=== PATIENT | female | born 1950 | race Caucasian/White ===

== ENCOUNTER 2019-01-17 14:09 | Observation (INO) ==
[2019-01-17 15:01] LABS: Hematocrit (blood only) 43.5 % (37-47); Hemoglobin 14.2 g/dL (12.0-16.0); Mean Corpuscular Hgb Conc 32.6 g/dL (32-36); Mean Corpuscular Volume 95.4 fL (80-100); Mean Platelet Volume 10.4 fL (7.4-10.4); Platelet Count 286 K/uL (130-400); RDW Coefficient of Variation 14.7 % (11.5-14.5); RDW Standard Deviation 51.1 fL (36.4-46.3); Red Blood Count 4.56 M/uL (4.2-5.4); White Blood Count 15.07 K/uL (4.8-10.8)
[2019-01-17 15:13] LABS: Partial Thromboplastin Ratio 0.9; Partial Thromboplastin Time 23.9 Seconds (21.0-31.0); Prothrombin Time 10.3 Seconds (9.0-12.0)
[2019-01-17 15:16] LABS: Alanine Aminotransferase 22 U/L (12-78); Albumin Level 3.4 gm/dl (3.4-5.0); Aspartate Aminotransferase 13 U/L (15-37); BUN Creatinine Ratio 16.4 (10-20); Blood Urea Nitrogen 15 mg/dl (7-18); Calcium 8.5 mg/dl (8.5-10.1); Carbon Dioxide 30 mmol/L (21-32); Chloride 102 mmol/L (98-107); Creatinine Clr Calc Pharmacy 58.3 ml/min; Est GFR (African American) 74.6; Est GFR (Non-African American) 64.4; Glucose 142 mg/dl (70-99); Magnesium 2.6 mg/dl (1.8-2.4); Potassium 3.6 mmol/L (3.5-5.1); Sodium 140 mmol/L (136-145)
[2019-01-17 15:18] LABS: Albumin Globulin Ratio 0.9 (0.9-2); Alkaline Phosphatase 95 U/L (45-117); Bilirubin,Total 0.4 mg/dl (0.2-1); Globulin 3.6 gm/dl (2.5-4.0)
[2019-01-17] MEDS ORDERED: OPTIRAY 320 125ml IV PRN (15:28)
--- NOTE | 2019-01-17 15:30 | CT Scan Report ---
CT head/brain wo con CLINICAL HISTORY: left facial numbness/left arm numb/weak COMPARISON STUDY: No previous studies for comparison. TECHNIQUE: Axial CT of the brain is performed from the vertex to the skull base. IV contrast was not administered for this examination. A dose lowering technique was utilized adhering to the principles of ALARA. CT DOSE: FINDINGS: No intra or extra-axial mass lesions are visualized. There is no CT evidence of acute cortical infarc tion. There is no evidence of midline shift. There is no acute hemorrhage. No calvarial fractures ar e visualized. There is no evidence of pathologic ventricular dilatation. There is no evidence of acute sinusitis IMPRESSION: No acute intracranial findings Electronically signed by: Roscoe Perez M.D. 01/17/2019 3:29 PM
[2019-01-17 15:41] LABS: Troponin I < 0.015 ng/ml (0-0.045)
--- NOTE | 2019-01-17 15:46 | CT Scan Report ---
CT angio head w con CLINICAL HISTORY: 68 years-old Female with left facial numbness/left arm numb/weak. Acute left-heather ed facial and left arm numbness COMPARISON STUDY: CT head of same day TECHNIQUE: Following the IV administration of 118 cc of Optiray 320, CT angiogram of the brain was pe rformed from the skull base to the vertex. Images are reviewed in the axial, sagittal, and coronal pl anes. 3-D MIPS images are created and assessed. IV contrast was administered without complication. A dose lowering technique was utilized adhering to the principles of ALARA. FINDINGS: CT ANGIOGRAM OF THE BRAIN: The imaged bilateral internal carotid arteries are patent. The bilateral anterior and middle cerebral arteries are also patent. The vertebrobasilar system and posterior cerebral arteries are widely olson nt. There is no aneurysm, high-grade stenosis, or proximal branch occlusion identified. Dural sinuses appear patent. Diminutive right V4 segment terminates into the right PICA, likely developmental. Fet al origin of the left posterior cerebral artery. IMPRESSION: Unremarkable CTA of the head. The above report was generated using voice recognition software. It may contain grammatical, syntax o r spelling errors. Electronically signed by: Simon Drummond M.D. 01/17/2019 3:45 PM
--- NOTE | 2019-01-17 15:50 | CT Scan Report ---
CT angio neck with con CLINICAL HISTORY: 68 years-old Female with left facial numbness/left arm numb/weak. Acute strokeli ke symptoms with left facial and left arm numbness and weakness COMPARISON STUDY: CT head and CTA head of same day TECHNIQUE: Following the IV administration of 1 18 mL of Optiray 320, CT angiogram of the neck was pe rformed from the aortic arch to the skull base. Images are reviewed in the axial, sagittal, and coron al planes. 3-D MIPS images are created and assessed. IV contrast was administered without complicatio n. All measurements were calculated based on NASCET criteria. A dose lowering technique was utilized adhering to the principles of ALARA. FINDINGS: Imaged bilateral subclavian arteries appear widely patent. Bilateral common carotid arterie s appear widely patent. Mild mixed plaque formation about the left carotid bulb results in less than 50% luminal narrowing. Bilateral internal carotid arteries are otherwise unremarkable and widely olosn nt. Mild calcified plaque noted about the bilateral cavernous and supraclinoid segments. Dominant left vertebral artery is widely patent and within normal limits. Developmentally diminutive right vertebral artery terminates into the right PICA. Basilar artery is patent and unremarkable. Fet al origin of the left posterior cerebral artery. The lateral posterior cerebral arteries appear paten t and unremarkable. No pneumothorax. Lung apices appear clear. Nonspecific prominent 7 mm lymph node of the right tracheo esophageal recess. Soft tissues are unremarkable. Degenerative changes of the spine are noted. No acu te fracture identified. IMPRESSION:Unremarkable CTA of the neck without aneurysm, dissection, high-grade stenosis or proximal branch occlusion. The above report was generated using voice recognition software. It may contain grammatical, syntax o r spelling errors. Electronically signed by: Simon Drummond M.D. 01/17/2019 3:49 PM
--- NOTE | 2019-01-17 15:53 | XRay Report ---
XR chest 1V portable CLINICAL HISTORY: cough eval for pna dyspnea COMPARISON STUDY: No previous studies for comparison. FINDINGS: The bones soft tissues and hemidiaphragms are normal. The cardiomediastinal silhouette is n ormal. The lungs are clear. The pulmonary vasculature is normal. IMPRESSION: Negative chest. The above report was generated using voice recognition software. It may contain grammatical, syntax or spelling errors. Electronically signed by: Robert Holley M.D. 01/17/2019 3:52 PM
[2019-01-17] MEDS ORDERED: CLOPIDOGREL BISULFATE 300 MG TAB PO STA (16:23)
[2019-01-17] MEDS ORDERED: LORazepam 1 MG/2 ML VIAL IV ONE (17:07)
--- NOTE | 2019-01-17 17:32 | History & Physical Report ---
Date of Service January 17, 2019 Assessment & Plan (1) Facial numbness: (2) Arm numbness left: -Admit to telemetry -Patient presenting from home with reports of facial numbness and left arm numbness -Stroke alert called in the ED however patient felt to not be a TPA candidate secondary to sensory symptoms only -Head CT, head and neck CTAs all negative for acute findings -Patient received clopidogrel 300 mg per recommendation of stroke neurologist -Check brain MRI and echo -Permissive HTN -History of prior TIA in the past, continue aspirin and statin and add clopidogrel 75 mg starting tomorrow -Neurology consult, input appreciated (3) Leukocytosis: -WBC 15 K -No signs of infection -Likely secondary to recent steroid use (4) HTN (hypertension): -BP mildly elevated, allowing for permissive hypertension in the setting of possible CVA -Continue home doses of bisoprolol/HCTZ, lisinopril with holding parameters in place (5) Hypothyroidism: -Continue levothyroxine (6) Moderate persistent asthma: -No signs of acute exacerbation -Continue home inhalers -Recently self started prednisone taper that was initially prescribed for arthritis flare for a suspected bronchitis, symptoms resolving (7) DVT prophylaxis: -SQ Lovenox History of Present Illness Chief Complaint: Facial and left arm numbness Primary Care Provider: Radha Palmer DO 68-year-old female who presents to the ED with facial and left arm numbness. Patient reports that suddenly around 1:00, she developed numbness over her entire face that radiated into her left arm. She reports some mild left arm weakness and achiness associated with it. No facial droop, slurred speech, lower extremity involvement. She then presented to the ER for further evaluation. About 1 month ago, patient was having low-grade fevers and a persistent leukocytosis. 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 Patient reports her symptoms spontaneously resolved and she did not start the steroids. However she did self start the steroids about 8 days ago for a suspected bronchitis. Patient reports her URI symptoms are resolving as well. She denies recent fevers and chills. No chest pain or shortness of breath. She denies lightheadedness, dizziness, diaphoresis, syncopal events. No abdominal pain, nausea, vomiting or diarrhea. She denies any urinary symptoms. In the ED, a stroke alert was called however patient was not felt to be a TPA candidate since only sensory symptoms are remaining. Head CT, head and neck CTAs are negative for acute findings. Labs are unremarkable. Per stroke neurologist recommendations, patient was given clopidogrel 300 mg. Allergies Allergy/AdvReac Type Severity Reaction Status Date / Time tetracycline Allergy Severe SWELLING Unverified 01/17/19 14:55 adalimumab Allergy Intermediate . Unverified 01/17/19 14:55 Penicillins Allergy Intermediate . Unverified 01/17/19 14:55 promethazine Allergy Intermediate . Unverified 01/17/19 14:55 Home Medications Home Medications Medication Instructions Recorded Confirmed Type allopurinol 300 mg PO DAILY 01/17/19 01/17/19 History aspirin 81 mg PO DAILY 01/17/19 01/17/19 History atorvastatin 40 mg PO DAILY 01/17/19 01/17/19 History bisoprolol-hydrochlorothiazide 1 tab PO DAILY 01/17/19 01/17/19 History fluticasone propion-salmeterol 1 inh INHALATION BID 01/17/19 01/17/19 History [Wixela Inhub] levothyroxine [Synthroid] 125 mcg PO DAILY 01/17/19 01/17/19 History lisinopril 10 mg PO DAILY 01/17/19 01/17/19 History montelukast 10 mg PO DAILY 01/17/19 01/17/19 History prednisone See Rx Instructions .ROUTE .COMPLEX 01/17/19 01/17/19 History Past Med/Surg History Medical History History of hysterectomy (Chronic) TIA (transient ischemic attack) (Chronic) Fibromyalgia (Chronic) Seronegative rheumatoid arthritis (Chronic) Osteoarthritis (Chronic) IBS (irritable bowel syndrome) (Chronic) HTN (hypertension) (Chronic) Moderate persistent asthma (Chronic) HLD (hyperlipidemia) (Chronic) Hypothyroidism (Chronic) Surgical History H/O spinal fusion (Chronic) History of cataract surgery (Chronic) History of bilateral carpal tunnel release (Chronic) Family History Father Heart disease Mother Heart disease Brother Heart disease Social History Feels Safe at Home: Yes Smoking Status: Never smoker Hx Alcohol Use: Yes Alcohol Intake Frequency: Rarely Review of Systems Review of Systems: ROS per HPI, all other systems reviewed and negative Physical Exam Constitutional: WD/WN, vitals as above Eyes: PERRL, conjunctivae normal, anicteric sclerae ENMT: external ear and nose normal, oropharynx normal Respiratory: normal respiratory effort, lungs clear to auscultation Cardiovascular: Rate/Rhythm: regular rate and regular rhythm Vessels: normal peripheral pulses Extremities: no edema Gastrointestinal (Abdomen): normal bowel sounds, soft, nontender, no hepatosplenomegaly Musculoskeletal: no cyanosis or clubbing, extremities motor strength 5/5 Skin: no rashes, warm and dry Neurologic: PERRL, EOMI, accommodation nl, no face palsy, no dysarthria moves all extremities and awake Motor/Sensory: + sensory deficit (Facial numbness); no pronator drift Coordination: normal [id number] test and normal [id number] test Psychiatric: A+Ox3, euthymic affect Results & Data Vital Signs (Past 12 Hours) Vital Signs Temp Pulse Pulse Resp BP BP Pulse Ox 01/17/19 16:30 66 17 154/78 H 94 01/17/19 15:36 81 16 146/75 H 97 01/17/19 14:17 36.9 C 67 18 151/73 H 91 Laboratory Results Short CBC 01/17/19 Range/Units 14:48 WBC 15.07 H (4.8-10.8) K/uL Hgb 14.2 (12.0-16.0) g/dL Hct 43.5 (37-47) % Plt Count 286 (130-400) K/uL BMP 01/17/19 14:48 Sodium 140 Potassium 3.6 Chloride 102 Carbon Dioxide 30 BUN 15 Creatinine 0.91 Glucose 142 H Calcium 8.5 Cardiac Enzymes 01/17/19 Range/Units 14:48 Troponin I < 0.015 (0-0.045) ng/ml Liver Function 01/17/19 Range/Units 14:48 Total Bilirubin 0.4 (0.2-1) mg/dl AST 13 L (15-37) U/L ALT 22 (12-78) U/L Alkaline Phosphatase 95 (45-117) U/L Albumin 3.4 (3.4-5.0) gm/dl Diagnostic Findings HEAD CT IMPRESSION: No acute intracranial findings HEAD CTA IMPRESSION: Unremarkable CTA of the head. NECK CTA IMPRESSION:Unremarkable CTA of the neck without aneurysm, dissection, high-grade stenosis or proximal branch occlusion. CXR IMPRESSION: Negative chest. Code Status & VTE Plan VTE Prophylaxis Plan VTE Prophylaxis will be ordered: Yes Supervising Physician Co-Signing Physician Notes I saw this patient with the Nurse Practitioner, I participated in the history, physical, review of systems, and physical exam. I reviewed the medications with the patient and the Nurse Practitioner and helped reconcile the medications. I helped take a detailed family and social history as well. I formulated the assessment and plan personally with the Nurse Practitioner went over it with the patient. ROS-No Headache, No Visual Changes, No Nausea, No Vomiting, No Fever, No Chills, No Neck Pain or Stiffness, No Chest Pain, No Palpitations, No SOB, No DOBSON, No Cough, No Sputum, No Wheezing, No Abdominal Pain, No Diarrhea, No Hematemesis, No Hemoptysis, No Unexpected Weight Loss, No Flank pain, No Melena, No Hematochezia, No Frequency, No Urgency, No Burning, No Hematuria, No Rashes, No Diaphoresis. Appetite is Normal, +Facial weakness and LUE weakness Physical Exam Gen-AAO x 3, NAD, Afebrile Head-NCAT, EOMI, PERRLA, Anicteric Sclera, No Posterior Pharyngeal Erythema Neck-Supple, No JVD, No Thyromegaly, No Masses, No LAD, No Bruits Lungs-Clear to Auscultation Bilaterally, No Rales, No Rhonchi, No Wheezing, No Crepitus Chest-No S4, +S1, +S2, No S3, No Murmurs, No Rubs, No Gallops, No Ectopy Abdomen-Soft, Bowel Sounds Present, Non Tender, Non Distended, No Hepatomegaly, No Splenomegaly, No Palpable Masses, No Rebound, No Rigidity, No Guarding Musculoskeletal-Full Range of Motion Bilaterally, No CVAT Extremities-No Cyanosis, No Clubbing, No Edema Nuero-Cranial Nerves II-XII grossly intact, Descreased Motor B/L UEs, DTRs WNL, Strength Decreased on Left Psych-Normal Mood
[2019-01-17] MEDS ORDERED: GADOBUTROL 65ML VIAL IV PRN (18:18)
--- NOTE | 2019-01-17 18:32 | Magnetic Resonance Report ---
MR brain wo/w con CLINICAL HISTORY: CVA mental status change COMPARISON STUDY: No previous studies for comparison. TECHNIQUE: Utilizing a 1.5 Megan magnet and dedicated coil, multiplanar, multiecho imaging of the br ain was performed pre and postcontrast administration. IV administration of 7.5 mL of Gadavist contr ast was uneventful. FINDINGS: No evidence for acute ischemic process. Diffusion-weighted images are normal. Findings of mild age-related atrophy and chronic small vessel change. No abnormal postcontrast enhanc ement. IMPRESSION: No acute process. The above report was generated using voice recognition software. It may contain grammatical, syntax or spelling errors. Electronically signed by: Robert Holley M.D. 01/17/2019 6:31 PM
[2019-01-17] MEDS ORDERED: PHARMACIST DISCHARGE MED REC CONSULT PRN (18:53)
[2019-01-17] MEDS ORDERED: ACETAMINOPHEN 325 MG TAB PO PRN (18:53)
[2019-01-17] MEDS ORDERED: ENOXAPARIN INJ 40 MG/0.4 ML SYR SQ SCH (20:00)
[2019-01-17] MEDS: FLUTICASONE/SALMETEROL 250/50 (ADVAIR) 14 PUFF/1 INHALER INH SCH (21:03)
--- NOTE | 2019-01-17 21:37 | Emergency Department Note ---
Entered by Simin Rubio acting as a scribe for History of Present Illness General Chief complaint: Neuro Symptoms/Deficit Stated complaint: FACIAL NUMBNESS & LEFT ARM/HAND Source: patient History of Present Illness Onset (ago): hour(s) 2 Location: face and upper extremity (left arm) Severity: similar to prior episodes Pain Consistency: + other (episode) Maximum Pain Intensity: 1 Quality: + aching (left arm) Associated symptoms: + weakness (left arm) and + other (-speech troubles; - walking troubles; -similar leg symptoms; -visual changes); no chest pain, no headaches and no shortness of breath The patient is a 68 year old female who presents to the Emergency Room with complaints of an episode of numbness to her entire face and left arm that started at approximately 1330 today. The patient also notes her left arm feels weak and she feels "achy" pain in the left arm. The patient states she has had a couple TIAs about 1 year ago. She stated that this consisted of numbness to the right side of her face. The patient notes she takes prednisone, and she initially believed her symptoms were caused by an adverse reaction to prednisone. The patient also reports that she is currently getting over bronchitis. She called her doctor who referred her here. The patient denies speech troubles, walking troubles, numbness or weakness in legs, or visual changes. The patient also denies a headache, chest pain, and shortness of breath. The patient does not note previous history of heart disease or diabetes, however the patient notes of asthma and a spinal fusion in lumbar spine. Home Medications Home Medications Medication Instructions Recorded Confirmed Type allopurinol 300 mg PO DAILY 01/17/19 01/17/19 History aspirin 81 mg PO DAILY 01/17/19 01/17/19 History atorvastatin 40 mg PO DAILY 01/17/19 01/17/19 History bisoprolol-hydrochlorothiazide 1 tab PO DAILY 01/17/19 01/17/19 History fluticasone propion-salmeterol 1 inh INHALATION BID 01/17/19 01/17/19 History [Wixela Inhub] levothyroxine [Synthroid] 125 mcg PO DAILY 01/17/19 01/17/19 History lisinopril 10 mg PO DAILY 01/17/19 01/17/19 History montelukast 10 mg PO DAILY 01/17/19 01/17/19 History prednisone See Rx Instructions .ROUTE .COMPLEX 01/17/19 01/17/19 History Allergies Allergy/AdvReac Type Severity Reaction Status Date / Time tetracycline Allergy Severe SWELLING Unverified 01/17/19 14:55 adalimumab Allergy Intermediate . Unverified 01/17/19 14:55 Penicillins Allergy Intermediate . Unverified 01/17/19 14:55 promethazine Allergy Intermediate . Unverified 01/17/19 14:55 Past Med/Surg History Medical History History of hysterectomy (Chronic) TIA (transient ischemic attack) (Chronic) Fibromyalgia (Chronic) Seronegative rheumatoid arthritis (Chronic) Osteoarthritis (Chronic) IBS (irritable bowel syndrome) (Chronic) HTN (hypertension) (Chronic) Moderate persistent asthma (Chronic) HLD (hyperlipidemia) (Chronic) Hypothyroidism (Chronic) Surgical History H/O spinal fusion (Chronic) History of cataract surgery (Chronic) History of bilateral carpal tunnel release (Chronic) Family History Father Heart disease Mother Heart disease Brother Heart disease Social History Preferred Language: Kyrgyz Supervisor Composing Room Required: No Beliefs That Will Affect Care: None Current Living Situation: Spouse Other Information That Helps Us Care for You: No Feels Safe at Home: Yes Safety Concerns: Feels Safe At This Time Smoking Status: Never smoker Hx Alcohol Use: Yes Alcohol Intake Frequency: Rarely Hx Substance Use: No Review of Systems See HPI for pertinent positives & negatives. and A total of 10 systems reviewed and were otherwise negative Physical Exam Vital Signs Vital Signs - 24 hr 01/17/19 14:17 01/17/19 14:39 01/17/19 14:54 Temperature 36.9 C Temperature Source Oral Sepsis Recent Fever Within 48 Hours Yes Sepsis New/Unexplained Change in Mental Status No Sepsis Action Taken by Nursing No Action Required Pulse Rate 67 74 Pulse Rate [Left] Pulse Rate from SpO2 Sensor Respiratory Rate 18 24 Respiratory Effort / Characteristics Respiratory Depth Blood Pressure 151/73 H Blood Pressure [Left Arm] Blood Pressure Mean 99 Blood Pressure Mean [Left Arm] Blood Pressure Position [Left Arm] Pulse Oximetry 91 Oxygen Delivery Method Room Air Room Air 01/17/19 15:00 01/17/19 15:36 01/17/19 15:38 Temperature Temperature Source Sepsis Recent Fever Within 48 Hours Sepsis New/Unexplained Change in Mental Status Sepsis Action Taken by Nursing Pulse Rate 69 83 Pulse Rate [Left] 81 Pulse Rate from SpO2 Sensor Respiratory Rate 15 16 24 Respiratory Effort / Characteristics Non-Labored Spontaneous Respiratory Depth Normal Blood Pressure Blood Pressure [Left Arm] 146/75 H Blood Pressure Mean Blood Pressure Mean [Left Arm] 98 Blood Pressure Position [Left Arm] Lying Pulse Oximetry 97 Oxygen Delivery Method Room Air 01/17/19 15:41 01/17/19 16:00 01/17/19 16:15 Temperature Temperature Source Sepsis Recent Fever Within 48 Hours Sepsis New/Unexplained Change in Mental Status Sepsis Action Taken by Nursing Pulse Rate 78 73 70 Pulse Rate [Left] Pulse Rate from SpO2 Sensor 78 73 70 Respiratory Rate 13 20 16 Respiratory Effort / Characteristics Respiratory Depth Blood Pressure 148/68 H 166/92 H 166/92 H Blood Pressure [Left Arm] Blood Pressure Mean 94 116 116 Blood Pressure Mean [Left Arm] Blood Pressure Position [Left Arm] Pulse Oximetry 94 95 94 Oxygen Delivery Method 01/17/19 16:30 01/17/19 16:31 01/17/19 17:00 Temperature Temperature Source Sepsis Recent Fever Within 48 Hours Sepsis New/Unexplained Change in Mental Status Sepsis Action Taken by Nursing Pulse Rate 67 69 67 Pulse Rate [Left] 66 Pulse Rate from SpO2 Sensor 67 68 67 Respiratory Rate 13 18 20 Respiratory Effort / Characteristics Non-Labored Spontaneous Respiratory Depth Normal Blood Pressure 154/78 H Blood Pressure [Left Arm] 154/78 H Blood Pressure Mean 103 Blood Pressure Mean [Left Arm] 103 Blood Pressure Position [Left Arm] Lying Pulse Oximetry 95 93 94 Oxygen Delivery Method Room Air Constitutional: Vital signs reviewed. Eyes: Pupils are equal round reactive to light. Conjunctiva are noninjected. ENT: Pharynx is clear without erythema or exudate. Mucous membranes are moist. Neck supple without meningeal signs. Respiratory: Clear to auscultation bilaterally. Breath sounds are equal bilaterally. Cardiovascular: Regular rate and rhythm. No rubs or gallops. GI: Soft, nondistended and nontender. Bowel sounds are present. Musculoskeletal: No peripheral edema. No lower extremity tenderness. Integumentary: No cyanosis. Neurological: The patient is awake and alert. Cranial nerves II-XII are intact except dysesthesia to left face. Motor is 5 out of 5 all extremities. Sensation is intact to light touch all extremities. Normal speech. No pronator drift. No limb ataxia. Psychiatric: Normal affect. Course 1511: Past medical records reviewed. The patient was evaluated in room A11B. A complete history and physical exam was performed. 1537: I discussed the case with Dr. Olguin-Neurologist Chanel. Dr. Olguin has advised to not give IV TPA due to the patient's purely sensory findings. She recommended loading with Plavix 3200 mg and then 75 mg daily. 1622: I discussed test results with the patient. She is agreeable to hospitalization. 1627: I discussed the case with Ani Perdomo. Dr. Narayan-Hospitalist Aj moscoso will further evaluate the patient. Consultations Consultation #1: I discussed the case with Dr. Olguin-Neurologheber Buchanan. Dr. Olguin has advised to not give IV TPA due to the patient's purely sensory findings. She recommended loading with Plavix 3200 mg and then 75 mg daily. Time: 15:37 Consultation #2: I discussed the case with Ani Perdomo. Dr. Narayan- Hospitalheber [facility] will further reevaluate the patient. Time: 16:27 Administered Medications Enoxaparin Sodium (Lovenox) 40 mg SQ Q24H SUSHILA Stop: 02/16/19 19:59 Last Admin: 01/17/19 21:02 Dose: 40 mg Documented by: [id number] Gadobutrol (Gadavist 65ml) 8 ml IV ONCE PRN PRN Reason: Interaction Checking Stop: 01/21/19 18:17 Last Admin: 01/17/19 18:19 Dose: 8 ml Documented by: [id number] Fluticasone/Salmeterol (Advair Diskus 250/50) 1 puffs INH BID SUSHILA Stop: 02/16/19 20:59 Last Admin: 01/17/19 21:03 Dose: 1 puffs Documented by: [id number] Discontinued Medications Clopidogrel Bisulfate (Plavix) 300 mg PO NOW STA Stop: 01/17/19 16:24 Last Admin: 01/17/19 16:51 Dose: 300 mg Documented by: [id number] Lorazepam (Ativan) 1 mg in 2 mls @ 0.5 mls/min IV ONE ONE Stop: 01/17/19 17:10 Last Admin: 01/17/19 17:44 Dose: 0.5 mls/min Documented by: [id number] Ioversol (Optiray 320 125ml) 118 ml IV ONCE PRN PRN Reason: Interaction Checking Stop: 01/21/19 15:27 Last Admin: 01/17/19 15:28 Dose: 118 ml Documented by: [id number] Medical Decision Making Differential Diagnosis Differential diagnoses include TIA, CVA, ICH, intracranial mass, metabolic derangement, amongst others. Medical Records Attestation: I reviewed the patient's medical records. I did perform a limited focused review of portions of the patient's old chart on the electronic medical record. The patient has had no recent pertinent visits to this hospital. Home Medications Current Medication List: was personally reviewed by me Laboratory Data Attestation: I reviewed the patient's lab results. Result diagrams: 01/17/19 14:48 01/17/19 14:48 Lab Results 01/17/19 01/17/19 01/17/19 Range/Units 14:48 14:48 14:48 WBC 15.07 H (4.8-10.8) K/uL RBC 4.56 (4.2-5.4) M/uL Hgb 14.2 (12.0-16.0) g/dL Hct 43.5 (37-47) % MCV 95.4 (80-100) fL MCH 31.1 (25-34) pg MCHC 32.6 (32-36) g/dL RDW Std Deviation 51.1 H (36.4-46.3) fL RDW Coeff of Gray 14.7 H (11.5-14.5) % Plt Count 286 (130-400) K/uL MPV 10.4 (7.4-10.4) fL PT 10.3 (9.0-12.0) Seconds INR 1.0 (0.9-1.1) APTT 23.9 (21.0-31.0) Seconds PTT Ratio 0.9 Sodium 140 (136-145) mmol/L Potassium 3.6 (3.5-5.1) mmol/L Chloride 102 (98-107) mmol/L Carbon Dioxide 30 (21-32) mmol/L Anion Gap 8.0 (3-11) BUN 15 (7-18) mg/dl Creatinine 0.91 (0.6-1.2) mg/dl Est Cr Clr Drug Dosing 58.3 ml/min Est GFR ( Amer) 74.6 Est GFR (Non-Af Amer) 64.4 BUN/Creatinine Ratio 16.4 (10-20) Glucose 142 H (70-99) mg/dl Calcium 8.5 (8.5-10.1) mg/dl Magnesium 2.6 H (1.8-2.4) mg/dl Total Bilirubin 0.4 (0.2-1) mg/dl AST 13 L (15-37) U/L ALT 22 (12-78) U/L Alkaline Phosphatase 95 (45-117) U/L Troponin I < 0.015 (0-0.045) ng/ml Total Protein 7.0 (6.4-8.2) gm/dl Albumin 3.4 (3.4-5.0) gm/dl Globulin 3.6 (2.5-4.0) gm/dl Albumin/Globulin Ratio 0.9 (0.9-2) Blood Type Antibody Screen 01/17/19 Range/Units 15:38 WBC (4.8-10.8) K/uL RBC (4.2-5.4) M/uL Hgb (12.0-16.0) g/dL Hct (37-47) % MCV (80-100) fL MCH (25-34) pg MCHC (32-36) g/dL RDW Std Deviation (36.4-46.3) fL RDW Coeff of Gray (11.5-14.5) % Plt Count (130-400) K/uL MPV (7.4-10.4) fL PT (9.0-12.0) Seconds INR (0.9-1.1) APTT (21.0-31.0) Seconds PTT Ratio Sodium (136-145) mmol/L Potassium (3.5-5.1) mmol/L Chloride (98-107) mmol/L Carbon Dioxide (21-32) mmol/L Anion Gap (3-11) BUN (7-18) mg/dl Creatinine (0.6-1.2) mg/dl Est Cr Clr Drug Dosing ml/min Est GFR ( Amer) Est GFR (Non-Af Amer) BUN/Creatinine Ratio (10-20) Glucose (70-99) mg/dl Calcium (8.5-10.1) mg/dl Magnesium (1.8-2.4) mg/dl Total Bilirubin (0.2-1) mg/dl AST (15-37) U/L ALT (12-78) U/L Alkaline Phosphatase (45-117) U/L Troponin I (0-0.045) ng/ml Total Protein (6.4-8.2) gm/dl Albumin (3.4-5.0) gm/dl Globulin (2.5-4.0) gm/dl Albumin/Globulin Ratio (0.9-2) Blood Type O Positive Antibody Screen NEGATIVE Imaging Data Radiologist's Impression: Radiology results as stated below per my review and the radiologist's interpretation: CT angio head w con CLINICAL HISTORY: 68 years-old Female with left facial numbness/left arm numb/weak. Acute left-sided facial and left arm numbness COMPARISON STUDY: CT head of same day TECHNIQUE: Following the IV administration of 118 cc of Optiray 320, CT angiogram of the brain was performed from the skull base to the vertex. Images are reviewed in the axial, sagittal, and coronal planes. 3-D MIPS images are created and assessed. IV contrast was administered without complication. A dose lowering technique was utilized adhering to the principles of ALARA. FINDINGS: CT ANGIOGRAM OF THE BRAIN: The imaged bilateral internal carotid arteries are patent. The bilateral anterior and middle cerebral arteries are also patent. The vertebrobasilar system and posterior cerebral arteries are widely patent. There is no aneurysm, high-grade stenosis, or proximal branch occlusion identified. Dural sinuses appear patent. Diminutive right V4 segment terminates into the right PICA, likely developmental. origin of the left posterior cerebral artery. IMPRESSION: Unremarkable CTA of the head. The above report was generated using voice recognition software. It may contain grammatical, syntax or spelling errors. Electronically signed by: Simon Drummond M.D. 01/17/2019 3:[address] angio neck with con CLINICAL HISTORY: 68 years-old Female with left facial numbness/left arm numb/weak. Acute strokelike symptoms with left facial and left arm numbness and weakness COMPARISON STUDY: CT head and CTA head of same day TECHNIQUE: Following the IV administration of 1 18 mL of Optiray 320, CT angiogram of the neck was performed from the aortic arch to the skull base. Images are reviewed in the axial, sagittal, and coronal planes. 3-D MIPS images are created and assessed. IV contrast was administered without complication. All measurements were calculated based on NASCET criteria. A dose lowering technique was utilized adhering to the principles of ALARA. FINDINGS: Imaged bilateral subclavian arteries appear widely patent. Bilateral common carotid arteries appear widely patent. Mild mixed plaque formation about the left carotid bulb results in less than 50% luminal narrowing. Bilateral internal carotid arteries are otherwise unremarkable and widely patent. Mild calcified plaque noted about the bilateral cavernous and supraclinoid segments. Dominant left vertebral artery is widely patent and within normal limits. Developmentally diminutive right vertebral artery terminates into the right PICA. Basilar artery is patent and unremarkable. origin of the left posterior cerebral artery. The lateral posterior cerebral arteries appear patent and unremarkable. No pneumothorax. Lung apices appear clear. Nonspecific prominent 7 mm lymph node of the right tracheoesophageal recess. Soft tissues are unremarkable. Degenerative changes of the spine are noted. No acute fracture identified. IMPRESSION:Unremarkable CTA of the neck without aneurysm, dissection, high-grade stenosis or proximal branch occlusion. The above report was generated using voice recognition software. It may contain grammatical, syntax or spelling errors. Electronically signed by: Simon Drummond M.D. 01/17/2019 3:[address] head/brain wo con CLINICAL HISTORY: left facial numbness/left arm numb/weak COMPARISON STUDY: No previous studies for comparison. TECHNIQUE: Axial CT of the brain is performed from the vertex to the skull base. IV contrast was not administered for this examination. A dose lowering technique was utilized adhering to the principles of ALARA. CT DOSE: FINDINGS: No intra or extra-axial mass lesions are visualized. There is no CT evidence of acute cortical infarction. There is no evidence of midline shift. There is no acute hemorrhage. No calvarial fractures are visualized. There is no evidence of pathologic ventricular dilatation. There is no evidence of acute sinusitis IMPRESSION: No acute intracranial findings Electronically signed by: Roscoe Perez M.D. 01/17/2019 3:29 PM XR chest 1V portable CLINICAL HISTORY: cough eval for pna dyspnea COMPARISON STUDY: No previous studies for comparison. FINDINGS: The bones soft tissues and hemidiaphragms are normal. The cardiomediastinal silhouette is normal. The lungs are clear. The pulmonary vasculature is normal. IMPRESSION: Negative chest. The above report was generated using voice recognition software. It may contain grammatical, syntax or spelling errors. Electronically signed by: Robert Holley M.D. 01/17/2019 3:52 PM ECG Data Attestation: I personally reviewed and interpreted this ECG as follows: Indication: other (stroke) Rate (beats per minute): 70 Rhythm: normal sinus Findings: no PVC and no ST elevation Blood Pressure Blood Pressure Findings: Elevated blood pressure Blood Pressure Disposition: further management by hospitalist DOMENICA Hanson I did evaluate the patient as noted above. The patient is presenting with numb ness to her entire face as well as numbness and weakness to her left arm starting 2 hours prior to my evaluation. On my examination she has some dysesthesia to the left face but no other deficits. I did call a stroke alert. IV access was established. The patient was placed on a continuous director of corporate sponsorships.I did order a stat CT of the head and CT angiogram of the head neck. I did review the images myself as well as the radiology report as described above. There is no evidence of acute CVA. I did discuss the case with the [facility] stroke neurologist. She did not feel the patient was a candidate for IV TPA given her minor sensory deficits. She recommended further work-up as an inpatient including MRI. She also recommended loading the patient with Plavix. I did order and personally review the patient's 12-lead EKG as described above. There is no evidence of acute ischemia. I did order and personally reviewed the images of the patient's chest x-ray as described above. There is no evidence of pneumonia. I did order and review the patient's blood work as noted in the electronic medical record. Her white blood cell count is elevated but she just finished a course of steroids. I did discuss the test results with the patient. She was agreeable to hospitalization for further evaluation. I did treat her with Plavix 300 mg orally. I did discuss the case with the hospitalist and case checker. Impression & Plan Left facial numbness, Left arm weakness, Arm numbness left, Bronchitis Discharge Plan Visit Data *Final* Discharge Date/Time: 01/17/19 18:14 Chief Complaint: Neuro Symptoms/Deficit Stated Complaint: FACIAL NUMBNESS & LEFT ARM/HAND ED Provider: Kyaw Negrete Discharge Problem: Left facial numbness, Left arm weakness, Arm numbness left, Bronchitis Patient Disposition: Admitted As Inpatient Discharge Instructions Interventions: ED Discharge Assessment Last Done: 01/17/19 18:14 The scribe's documentation has been prepared under my direction and personally reviewed by me in its entirety. I confirm that the note above accurately reflects all work, treatment, procedures, and medical decision making performed by me.
[2019-01-17] MEDS ORDERED: ZOLPIDEM TARTRATE 5 MG TAB PO PRN (21:46)
[2019-01-18 05:51] LABS: Estimated Average Glucose 128 mg/dl; Hemoglobin A1C 6.1 % (4.5-5.6)
[2019-01-18 06:21] LABS: Hematocrit (blood only) 41.1 % (37-47); Hemoglobin 13.2 g/dL (12.0-16.0); Mean Corpuscular Hgb Conc 32.1 g/dL (32-36); Mean Corpuscular Volume 93.4 fL (80-100); Mean Platelet Volume 10.7 fL (7.4-10.4); Platelet Count 248 K/uL (130-400); RDW Coefficient of Variation 14.6 % (11.5-14.5); RDW Standard Deviation 49.7 fL (36.4-46.3); White Blood Count 14.69 K/uL (4.8-10.8)
[2019-01-18] MEDS ORDERED: LEVOTHYROXINE SODIUM 125 MCG TABLET PO SCH (06:30)
[2019-01-18 06:54] LABS: BUN Creatinine Ratio 15.3 (10-20); Calcium 8.4 mg/dl (8.5-10.1); Creatinine Clr Calc Pharmacy 62.8 ml/min; Est GFR (African American) 82.2; Est GFR (Non-African American) 70.9; Potassium 3.9 mmol/L (3.5-5.1)
[2019-01-18 07:20] LABS: Basophils # (auto) 0.07 K/uL (0-0.2); Basophils % (auto) 0.5 %; Eosinophils # (auto) 0.36 K/uL (0-0.5); Eosinophils % (auto) 2.5 %; Immature Granulocytes # (auto) 0.03 K/uL (0.00-0.02); Immature Granulocytes % (auto) 0.2 %; Lymphocytes % (auto) 36.1 %; Monocytes # (auto) 0.85 K/uL (0.11-0.59); Monocytes % (auto) 5.8 %; Neutrophils # (auto) 8.08 K/uL (1.4-6.5); Neutrophils % (auto) 54.9 %
[2019-01-18] MEDS: FLUTICASONE/SALMETEROL 250/50 (ADVAIR) 14 PUFF/1 INHALER INH SCH (07:41)
[2019-01-18] MEDS ORDERED: ALLOPURINOL 300 MG TAB PO SCH (09:00)
[2019-01-18] MEDS ORDERED: ASPIRIN 81 MG ECTAB PO SCH (09:00)
[2019-01-18] MEDS ORDERED: MONTELUKAST SODIUM 10 MG TABLET PO SCH (09:00)
[2019-01-18] MEDS ORDERED: predniSONE 5 MG TAB PO SCH (09:00)
[2019-01-18] MEDS ORDERED: LISINOPRIL 10 MG TAB PO SCH (09:00)
[2019-01-18] MEDS ORDERED: CLOPIDOGREL BISULFATE 75 MG TAB PO SCH (09:00)
[2019-01-18] MEDS ORDERED: ATORVASTATIN 40 MG TAB PO SCH (09:00)
[2019-01-18] MEDS ORDERED: LORazepam 0.5 MG TAB PO PRN (13:38)
[2019-01-18] MEDS ORDERED: LORazepam 0.5 MG TAB PO STA (13:38)
[2019-01-18] MEDS ORDERED: BISOPROLOL PO SCH (14:00)
[2019-01-18] MEDS ORDERED: HCTZ PO SCH (14:00)
--- NOTE | 2019-01-18 15:42 | Neurology Consultation ---
Date of Consultation January 18, 2019 Assessment & Plan (1) Left facial numbness: 1. MRI brain with no acute findings 2. CTA head and neck- no significant stenosis 3. optimize HTN, HLD, DM LDL <70 4. continue aspirin 81 mg daily add plavix 75 mg x 21 days then plavix only for life 5. PT/OT speech for discharge needs- does not appear to be needed. 6. may need to see psychology/psychiatry for anxiety disorder 7. TTE no ASD 8. EEG- ?? for possible event follow up with neurology 4-6 weeks Julissa Ackerman PAC schedule (2) Arm numbness left: same as above Supervising Physician Co-Signing Physician Notes I have seen and discussed above patient with Dr uJlissa Braun, neurology History of Present Illness Reason for Consultation: TIA vs CVA Requesting Physician: Charly Lozano MD Attending Physician: Charly Lozano MD History of Present Illness Aj is a 68 year old female who presents to the ED with facial and left arm numbness. About 1:00pm yesterday , she developed numbness over her entire face that radiated into her left arm. She reports some mild left arm weakness and achiness associated with it. About 1 month ago, patient was having low-grade fevers and a persistent leukocytosis. She was seen by [facility] (Dr Draper) and prescribed a prednisone taper for a suspected flare of arthritis. She did not start the steroids but then started the steroids about 8 days ago for a suspected bronchitis which her last dose of 5 mg would have been today. She was seen in our office about 1 year ago for similar symptoms and had a thorough work up for stroke but all test were negative. She was started on aspirin 81 mg at that time. She was given Plavix in the ED. She states the symptoms started to resolve this am but she still has some numbness on the left side of her face. she has been under alot of stress lately and she is receiving some ativan here in the hospital which is helping. denies CP, SOB, abdominal pain, one sided weakness, numbness, tingling, N, V, swallowing issues, falls, headaches. Allergies Allergy/AdvReac Type Severity Reaction Status Date / Time tetracycline Allergy Severe SWELLING Unverified 01/17/19 14:55 adalimumab Allergy Intermediate . Unverified 01/17/19 14:55 Penicillins Allergy Intermediate . Unverified 01/17/19 14:55 promethazine Allergy Intermediate . Unverified 01/17/19 14:55 Home Medications Home Medications Medication Instructions Recorded Confirmed Type allopurinol 300 mg PO DAILY 01/17/19 01/17/19 History aspirin 81 mg PO DAILY 01/17/19 01/17/19 History atorvastatin 40 mg PO DAILY 01/17/19 01/17/19 History bisoprolol-hydrochlorothiazide 1 tab PO DAILY 01/17/19 01/17/19 History fluticasone propion-salmeterol 1 inh INHALATION BID 01/17/19 01/17/19 History [Wixela Inhub] levothyroxine [Synthroid] 125 mcg PO DAILY 01/17/19 01/17/19 History lisinopril 10 mg PO DAILY 01/17/19 01/17/19 History montelukast 10 mg PO DAILY 01/17/19 01/17/19 History prednisone See Rx Instructions .ROUTE .COMPLEX 01/17/19 01/17/19 History Patient History Medical History History of hysterectomy (Chronic) TIA (transient ischemic attack) (Chronic) Fibromyalgia (Chronic) Seronegative rheumatoid arthritis (Chronic) Osteoarthritis (Chronic) IBS (irritable bowel syndrome) (Chronic) HTN (hypertension) (Chronic) Moderate persistent asthma (Chronic) HLD (hyperlipidemia) (Chronic) Hypothyroidism (Chronic) Surgical History H/O spinal fusion (Chronic) History of cataract surgery (Chronic) History of bilateral carpal tunnel release (Chronic) Family History Father Heart disease Mother Heart disease Brother Heart disease Social History Preferred Language: Frisian Communication Ability: Effective 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 Beliefs That Will Affect Care: None Current Living Situation: Spouse Other Information That Helps Us Care for You: No Feels Safe at Home: Yes Safety Concerns: Feels Safe At This Time Smoking Status: Never smoker Hx Alcohol Use: Yes Alcohol Intake Frequency: Rarely Hx Substance Use: No Physical Exam Physical Exam: Physical Exam: Constitutional: appearance over nourished, healthy Ears, Nose, Mouth and Throat: mucous membranes moist, no injection and skin normal, eyes normal Cardiovascular: normal S-1 and S-2 and regular rate and rhythm Respiratory: clear to auscultation (CTA) and no rales, rhonchi or wheeze Musculoskeletal: no peripheral edema and good distal pulses Skin: no stigmata of neurocutaneous disease noted and normal and intact Eyes: extraocular muscles intact (EOMI) and pupils equal, round and reactive to light (PERRL) NEUROLOGIC EXAMINATION: Mental status: Alert and interactive Oriented to full date and location Oriented to person Speech fluent with no evidence of aphasia Cranial Nerves smile eye brow raise symmetric tongue midline Reflexes: Deep tendon reflexes were symmetrical and graded 2/5. toes are upgoing Sensory: decreased sensation left check and forhead, all other sensation intact to light and cool touch Coordination: finger to nose no bipass rapid movements intact Gait/Stance: Posture normal. moves with no limitations in bed and repositions self Motor: Negative for pronator drift of out stretched arms with eyes closed. 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 hip flex patellar plantar flex ext 5/5 Results & Data Vital Signs (Past 12 Hours) Vital Signs Temp Pulse Pulse Resp BP BP Pulse Ox 01/18/19 13:10 74 20 125/71 94 01/18/19 10:47 36.7 C 74 18 130/72 94 01/18/19 07:38 36.6 C 67 17 153/75 H 94 01/18/19 06:19 65 01/18/19 03:42 36.6 C 68 17 109/64 94 Laboratory Results Abnormal lab results 01/17/19 01/18/19 01/18/19 Range/Units 14:48 05:52 05:52 WBC 14.69 H (4.8-10.8) K/uL RDW Std Deviation 49.7 H (36.4-46.3) fL RDW Coeff of Gray 14.6 H (11.5-14.5) % MPV 10.7 H (7.4-10.4) fL Immature Gran # (Auto) 0.03 H (0.00-0.02) K/uL Neut # (Auto) 8.08 H (1.4-6.5) K/uL Lymph # (Auto) 5.30 H (1.2-3.4) K/uL [place] # (Auto) 0.85 H (0.11-0.59) K/uL Carbon Dioxide 33 H (21-32) mmol/L POC Glucose (70-99) Hemoglobin A1c 6.1 H (4.5-5.6) % Calcium 8.4 L (8.5-10.1) mg/dl 01/18/19 Range/Units 13:04 WBC (4.8-10.8) K/uL RDW Std Deviation (36.4-46.3) fL RDW Coeff of Gray (11.5-14.5) % MPV (7.4-10.4) fL Immature Gran # (Auto) (0.00-0.02) K/uL Neut # (Auto) (1.4-6.5) K/uL Lymph # (Auto) (1.2-3.4) K/uL [place] # (Auto) (0.11-0.59) K/uL Carbon Dioxide (21-32) mmol/L POC Glucose 134 H (70-99) Hemoglobin A1c (4.5-5.6) % Calcium (8.5-10.1) mg/dl Diagnostic Findings CTA head- Unremarkable CTA of the head. CTA neck-Unremarkable CTA of the neck without aneurysm, dissection, high-grade stenosis or proximal branch occlusion. MRI brain - No evidence for acute ischemic process. Diffusion-weighted images are normal. findings of mild age-related atrophy and chronic small vessel change. No abnormal postcontrast enhancement. EF 60-65% no ASD
[2019-01-18] MEDS ORDERED: STROKE PATIENT DISCHARGE STA (17:53)
--- NOTE | 2019-01-18 17:55 | Hospitalist Progress Note ---
Date of Service January 18, 2019 Assessment & Plan (1) Facial numbness: (2) Arm numbness left: -Patient presenting from home with reports of facial numbness and left arm numbness -Stroke alert called in the ED however patient felt to not be a TPA candidate secondary to sensory symptoms only -Head CT, head and neck CTAs all negative for acute findings -Patient received clopidogrel 300 mg per recommendation of stroke neurologist Brain MRI: Negative for acute ischemia Echo: Borderline concentric LVH, left ventricle wall motion is normal, left ventricular systolic function is normal, ejection fraction 60 to 65% There is no significant valvular disease , the intra-atrial septum is intact with no evidence for atrial septal defect Injection of contrast documented no intra-atrial shunt Symptoms resolved on the day of discharge Neurologist Dr. Vo consulted Recommend aspirin 81 mg x3 weeks then discontinue, and Plavix 75 mg p.o. daily indefinitely Follow-up with Dr. Vo in 4 to 6 weeks at the neurology clinic Continue risk factor control (3) Leukocytosis: -WBC 15 K -No signs of infection -Likely secondary to recent steroid use (4) HTN (hypertension): BP stable -Continue home doses of bisoprolol/HCTZ, lisinopril (5) Hypothyroidism: -Continue levothyroxine (6) Moderate persistent asthma: -No signs of acute exacerbation -Continue home inhalers -Recently self started prednisone taper that was initially prescribed for arthritis flare for a suspected bronchitis, symptoms resolved (7) Anxiety: Exhibited symptoms of heightened anxiety during admission Patient admits to having multiple stressors at home including recent in e family, and also illness in the family Anxiety may also be exacerbated by prednisone use recently Improved with Ativan as needed while admitted Patient prescribed Vistaril 50 mg every 6 hours as needed for anxiety Advised to seek medical help if worsening Monitor closely as an outpatient Disposition Discharge to home Follow-up with primary care physician on January [address] Tello Jo Follow-up with neurologist Dr. Vo in 4 to 6 weeks, she needs an appointment Subjective Follow-up for facial numbness, left arm numbness Seen resting in bed, comfortable, nondistressed States facial numbness is significantly improved, left arm numbness has resolved Denies other focal neurologic symptoms No chest pain, palpitations, dyspnea, dizziness No other symptoms Review of Systems Review of Systems: All systems reviewed & are unremarkable except as noted in HPI & below Physical Exam Physical Exam: General- oriented x 3, not in distress, speaks in sentences with no effort or accessory muscle use Head- atraumatic Eyes- PERRL, EOMI, anicteric ENT- oropharynx clear Neck- supple, no JVD, no adenopathy, no thyromegaly; carotids +2/2, no bruits appreciated Lungs- clear to auscultation bilaterally, no rales/wheezes Heart- normal rate, regular rhythm; no murmur, no gallop, no rub appreciated Abdomen- normal bowel sounds, nondistended, soft, nontender, no masses or hepatosplenomegaly Extremities- no pretibial edema, no calf tenderness; peripheral pulses intact Neuro- alert, oriented x 3; CN 2-12 grossly intact; motor 5/5 bilaterally; facial sensation around 90%, sensation 100% on all extremities; no other gross focal neurologic deficits Skin- warm & dry Results & Data Vital Signs (Past 12 Hours) Vital Signs Temp Pulse Pulse Resp BP BP Pulse Ox 01/18/19 16:55 73 01/18/19 15:25 36.7 C 68 21 120/72 93 01/18/19 13:10 74 20 125/71 94 01/18/19 10:47 36.7 C 74 18 130/72 94 01/18/19 07:38 36.6 C 67 17 153/75 H 94 01/18/19 06:19 65 Laboratory Results Laboratory Results - last 24 hr 01/17/19 01/18/19 01/18/19 14:48 05:52 05:52 WBC 14.69 H RBC 4.40 Hgb 13.2 Hct 41.1 MCV 93.4 MCH 30.0 MCHC 32.1 RDW Std Deviation 49.7 H RDW Coeff of Gray 14.6 H Plt Count 248 MPV 10.7 H Immature Gran % (Auto) 0.2 Neut % (Auto) 54.9 Lymph % (Auto) 36.1 [place] % (Auto) 5.8 Eos % (Auto) 2.5 Baso % (Auto) 0.5 Immature Gran # (Auto) 0.03 H Neut # (Auto) 8.08 H Lymph # (Auto) 5.30 H [place] # (Auto) 0.85 H Eos # (Auto) 0.36 Baso # (Auto) 0.07 Blood Smear Review Sodium 142 Potassium 3.9 Chloride 105 Carbon Dioxide 33 H Anion Gap 4.0 BUN 13 Creatinine 0.84 Est Cr Clr Drug Dosing 62.8 Est GFR ( Amer) 82.2 Est GFR (Non-Af Amer) 70.9 BUN/Creatinine Ratio 15.3 Glucose 95 POC Glucose Estimat Average Glucose 128 Hemoglobin A1c 6.1 H Calcium 8.4 L Triglycerides 70 Cholesterol 107 LDL Cholesterol, Calc 37 VLDL Cholesterol, Calc 14 HDL Cholesterol 56 Cholesterol/HDL Ratio 2 01/18/19 13:04 WBC RBC Hgb Hct MCV MCH MCHC RDW Std Deviation RDW Coeff of Gray Plt Count MPV Immature Gran % (Auto) Neut % (Auto) Lymph % (Auto) [place] % (Auto) Eos % (Auto) Baso % (Auto) Immature Gran # (Auto) Neut # (Auto) Lymph # (Auto) [place] # (Auto) Eos # (Auto) Baso # (Auto) Blood Smear Review Sodium Potassium Chloride Carbon Dioxide Anion Gap BUN Creatinine Est Cr Clr Drug Dosing Est GFR ( Amer) Est GFR (Non-Af Amer) BUN/Creatinine Ratio Glucose POC Glucose 134 H Estimat Average Glucose Hemoglobin A1c Calcium Triglycerides Cholesterol LDL Cholesterol, Calc VLDL Cholesterol, Calc HDL Cholesterol Cholesterol/HDL Ratio
--- NOTE | 2019-01-18 20:40 | Discharge Summary ---
Date of Service January 18, 2019 Admission HPI Per Admitting Provider 68-year-old female who presents to the ED with facial and left arm numbness. Patient reports that suddenly around 1:00, she developed numbness over her entire face that radiated into her left arm. She reports some mild left arm weakness and achiness associated with it. No facial droop, slurred speech, lower extremity involvement. She then presented to the ER for further evaluation. About 1 month ago, patient was having low-grade fevers and a persistent leukocytosis. Patient was seen by her analytics director and prescribed a prednisone taper for a suspected flare of arthritis. Patient reports her symptoms spontaneously resolved and she did not start the steroids. However she did self start the steroids about 8 days ago for a suspected bronchitis. Patient reports her URI symptoms are resolving as well. She denies recent fevers and chills. No chest pain or shortness of breath. She denies lightheadedness, dizziness, diaphoresis, syncopal events. No abdominal pain, nausea, vomiting or diarrhea. She denies any urinary symptoms. In the ED, a stroke alert was called however patient was not felt to be a TPA candidate since only sensory symptoms are remaining. Head CT, head and neck CTAs are negative for acute findings. Labs are unremarkable. Per stroke neurologist recommendations, patient was given clopidogrel 300 mg. Admission Exam Per Admitting Provider Constitutional: WD/WN, vitals as above Eyes: PERRL, conjunctivae normal, anicteric sclerae ENMT: external ear and nose normal, oropharynx normal Respiratory: normal respiratory effort, lungs clear to auscultation Cardiovascular: Rate/Rhythm: regular rate and regular rhythm Vessels: normal peripheral pulses Extremities: no edema Gastrointestinal (Abdomen): normal bowel sounds, soft, nontender, no hepatosplenomegaly Musculoskeletal: no cyanosis or clubbing, extremities motor strength 5/5 Skin: no rashes, warm and dry Neurologic: PERRL, EOMI, accommodation nl, no face palsy, no dysarthria moves all extremities and awake Motor/Sensory: + sensory deficit (Facial numbness); no pronator drift Coordination: normal [id number] test and normal [id number] test Psychiatric: A+Ox3, euthymic affect Principal Diagnosis POSSIBLE TRANSIENT ISCHEMIC ATTACK Discharge Exam General- oriented x 3, not in distress, speaks in sentences with no effort or accessory muscle use Head- atraumatic Eyes- PERRL, EOMI, anicteric ENT- oropharynx clear Neck- supple, no JVD, no adenopathy, no thyromegaly; carotids +2/2, no bruits appreciated Lungs- clear to auscultation bilaterally, no rales/wheezes Heart- normal rate, regular rhythm; no murmur, no gallop, no rub appreciated Abdomen- normal bowel sounds, nondistended, soft, nontender, no masses or hepatosplenomegaly Extremities- no pretibial edema, no calf tenderness; peripheral pulses intact Neuro- alert, oriented x 3; CN 2-12 grossly intact; motor 5/5 bilaterally; facial sensation around 90%, sensation 100% on all extremities; no other gross focal neurologic deficits Skin- warm & dry Discharge Data Allergies Allergy/AdvReac Type Severity Reaction Status Date / Time tetracycline Allergy Severe SWELLING Unverified 01/17/19 14:55 adalimumab Allergy Intermediate . Unverified 01/17/19 14:55 Penicillins Allergy Intermediate . Unverified 01/17/19 14:55 promethazine Allergy Intermediate . Unverified 01/17/19 14:55 Consultations 01/17/19 16:23 ED Decision to Admit Stat 01/17/19 18:53 Consult Case Management - Discharge Planning Routine Consult Neurology Routine Ordered Studies 01/17/19 15:18 CT head/brain wo con Stat IMPRESSION:Unremarkable CTA of the neck without aneurysm, dissection, high-grade stenosis or proximal branch occlusion. 01/17/19 15:19 CT angio head w con Stat IMPRESSION: Unremarkable CTA of the head. CT angio neck with con Stat 01/17/19 17:05 MR brain wo/w con Routine FINDINGS: No evidence for acute ischemic process. Diffusion-weighted images are normal. Findings of mild age-related atrophy and chronic small vessel change. No abn ormal postcontrast enhancement. IMPRESSION: No acute process. Hospital Course (1) Facial numbness: (2) Arm numbness left: -Patient presenting from home with reports of facial numbness and left arm numbness -Stroke alert called in the ED however patient felt to not be a TPA candidate secondary to sensory symptoms only -Head CT, head and neck CTAs all negative for acute findings -Patient received clopidogrel 300 mg per recommendation of stroke neurologist Brain MRI: Negative for acute ischemia Echo: Borderline concentric LVH, left ventricle wall motion is normal, left ventricular systolic function is normal, ejection fraction 60 to 65% There is no significant valvular disease , the intra-atrial septum is i ntact with no evidence for atrial septal defect Injection of contrast documented no intra-atrial shunt Symptoms resolved on the day of discharge Neurologist Dr. Vo consulted Recommend aspirin 81 mg x3 weeks then discontinue, and Plavix 75 mg p.o. daily indefinitely Follow-up with Dr. Vo in 4 to 6 weeks at the neurology clinic Continue risk factor control (3) Leukocytosis: -WBC 15 K -No signs of infection -Likely secondary to recent steroid use (4) HTN (hypertension): BP stable -Continue home doses of bisoprolol/HCTZ, lisinopril (5) Hypothyroidism: -Continue levothyroxine (6) Moderate persistent asthma: -No signs of acute exacerbation -Continue home inhalers -Recently self started prednisone taper that was initially prescribed for arthritis flare for a suspected bronchitis, symptoms resolved (7) Anxiety: Exhibited symptoms of heightened anxiety during admission Patient admits to having multiple stressors at home including recent in the family, and also illness in the family Anxiety may also be exacerbated by prednisone use recently Improved with Ativan as needed while admitted Patient prescribed Vistaril 50 mg every 6 hours as needed for anxiety Advised to seek medical help if worsening Monitor closely as an outpatient Disposition Discharge to home Follow-up with primary care physician on January [address] Tello Jo Follow-up with neurologist Dr. Vo in 4 to 6 weeks, she needs an appointment Total Time Total Time Spent Total Time Spent (In Minutes): 50 MINUTES Discharge Plan Discharge Items Patient Disposition: Home - Self-Care Reason For Visit: STROKE LIKE SYMPTOMS Discharge Diagnosis: POSSIBLE TRANSIENT ISCHEMIC ATTACK Discharge Goals: Diagnostic testing and Therapeutic intervention Activity: As commented below Activity Comment: RESUME ACTIVITY GRADUALLY TOLERATED Lifting: Wait until after follow-up appointment Exercise/Sports: Wait until after follow-up appointment Driving/Machine Use Comment: NO DRIVING/OPERATING MACHINERIES WHILE TAKING VISTARIL Non-emergency contact: Primary Care Provider Call non-emergency contact if: you have any medication questions and you have a fever Follow-up/Referrals: Julissa Braun MD [Physician] - Diet: Heart Healthy Addtl Provider Instructions: PLEASE FOLLOW UP WITH PRIMARY CARE PHYSICIAN DR. TELLO JO ON JANUARY 24, 2019Wednesday AT 1:00 PM. FOLLOW UP WITH NEUROLOGIST DR. YANCEY IN 2 WEEKS. PLEASE CALL HER OFFICE FOR AN APPOINTMENT. CONTACT INFORMATION NOTED ABOVE. TAKE ASPIRIN ONLY FOR 3 WEEKS. TAKE PLAVIX (CLOPIDOGREL) DAILY , INDEFINITELY. CALL PRIMARY CARE PHYSICIAN IMMEDIATELY IF WITH WORSENING OF ANXIETY. Risk Factors for Stroke: You can reduce your chances of stroke by working with your medical provider to adopt a healthy lifestyle. Some specific ways to lower your chance of stroke are: * If you are a smoker, now is the time to stop smoking cigarettes * If you are diabetic, improve the control of your blood sugars * Avoid excessive amounts of alcohol * Control high blood pressure * Lose weight if you are overweight * Be sure to lead an active lifestyle * Eat a healthy diet low in salt, cholesterol and fat You should know about other risk factors for stroke that you are unable to control. These include: * Age 55 years or older * Male gender * Certain racial groups: , or / * Family History of Stroke, Mini stroke or Heart Attack * Sickle Cell Disease Follow Up: It is important for you to keep your follow up appointments with your medical provider. Who to Call and When: Medical Emergencies: Call 911 immediately if you experience any of the following warning signs and symptoms of Stroke: * Sudden numbness or weakness of the face, arm or leg, especially on one side of the body * Sudden confusion, trouble speaking or understanding * Sudden trouble seeing in one or both eyes * Sudden trouble walking, dizziness, loss of balance or coordination * Sudden severe headache with no cause Do not delay calling 911 if you experience any warning signs or symptoms of a stroke. Delay in seeking medical attention may affect what treatments can be given to you. . Prescriptions: New clopidogrel 75 mg Tablet 75 mg PO QAM 30 Days Qty: 30 RF: 2 hydroxyzine pamoate [Vistaril] 50 mg capsule 50 mg PO Q6H PRN (Reason: anxiety) Qty: 10 RF: 0 Continued atorvastatin 40 mg tablet 40 mg PO DAILY RF: 0 bisoprolol-hydrochlorothiazide 10-6.25 mg tablet 1 tab PO DAILY RF: 0 levothyroxine [Synthroid] 125 mcg tablet 125 mcg PO DAILY RF: 0 lisinopril 10 mg tablet 10 mg PO DAILY RF: 0 montelukast 10 mg tablet 10 mg PO DAILY RF: 0 allopurinol 300 mg tablet 300 mg PO DAILY RF: 0 fluticasone propion-salmeterol [Wixela Inhub] 250-50 mcg/dose blister with device 1 inh inhalation BID RF: 0 prednisone 5 mg tablet See Rx Instructions .ROUTE .COMPLEX RF: 0 aspirin 81 mg Tablet,Delayed Release (Dr/Ec) 81 mg PO DAILY 21 Days Qty: 0 RF: 0 Stand-Alone Forms: [facility] Discharge Orders: Discharge Order (Routine); Ordered 01/18/19 Ordered By: Charly Lozano Admission Data Admit Date/Time: 01/17/19 17:03 Attending Provider: Charly Lozano Admit Provider: Kojo Narayan Primary Care Provider: Radha Palmer Other Providers: Kojo Narayan ; Julissa Braun ; Dallas Wu Service: Telemetry Other Interventions: Discharge Summary Assessment (RN) Last Done: 01/18/19 18:22 DC Date/Time DO NOT enter until pt leaves facility: 01/18/19 19:03
== END 2019-01-18 19:03 | disposition home or self-care (01) ==
LOC: 2S 14:09 → ED 14:09 → SUATTDRO 17:03 → 2S 18:14
DX: K58.9 Irritable bowel syndrome, unspecified; F41.9 Anxiety disorder, unspecified; R20.0 Anesthesia of skin; Z79.82 Long term (current) use of aspirin; Z79.899 Other long term (current) drug therapy; Z88.1 Allergy status to other antibiotic agents; E78.5 Hyperlipidemia, unspecified; Z98.1 Arthrodesis status; M79.7 Fibromyalgia; Z88.8 Allergy status to other drugs, medicaments and biological substances; I10 Essential (primary) hypertension; E03.9 Hypothyroidism, unspecified; J45.40 Moderate persistent asthma, uncomplicated; M06.00 Rheumatoid arthritis without rheumatoid factor, unspecified site; Z88.0 Allergy status to penicillin; D72.829 Elevated white blood cell count, unspecified

== ENCOUNTER 2020-11-24 20:05 | Observation (INO) ==
[2020-11-24 20:30] LABS: Basophils # (auto) 0.05 K/uL (0-0.2); Basophils % (auto) 0.4 %; Eosinophils # (auto) 0.34 K/uL (0-0.5); Eosinophils % (auto) 2.8 %; Hematocrit (blood only) 42.6 % (37-47); Hemoglobin 14.2 g/dL (12.0-16.0); Immature Granulocytes # (auto) 0.03 K/uL (0.00-0.02); Immature Granulocytes % (auto) 0.2 %; Lymphocytes # (auto) 4.36 K/uL (1.2-3.4); Mean Corpuscular Hemoglobin 31.1 pg (25-34); Mean Corpuscular Hgb Conc 33.3 g/dL (32-36); Mean Corpuscular Volume 93.4 fL (80-100); Mean Platelet Volume 10.2 fL (7.4-10.4); Monocytes # (auto) 0.81 K/uL (0.11-0.59); Monocytes % (auto) 6.7 %; Neutrophils # (auto) 6.51 K/uL (1.4-6.5); Neutrophils % (auto) 53.9 %; Platelet Count 256 K/uL (130-400); RDW Coefficient of Variation 14.2 % (11.5-14.5); RDW Standard Deviation 48.2 fL (36.4-46.3); Red Blood Count 4.56 M/uL (4.2-5.4)
[2020-11-24 20:40] LABS: Partial Thromboplastin Ratio 0.9; Partial Thromboplastin Time 23.4 Seconds (21.0-31.0); Prothrombin Time 9.8 Seconds (9.0-12.0)
[2020-11-24 20:48] LABS: Alanine Aminotransferase 24 U/L (12-78); Albumin Level 3.5 gm/dl (3.4-5.0); Aspartate Aminotransferase 23 U/L (15-37); BUN Creatinine Ratio 8.7 (10-20); Blood Urea Nitrogen 9 mg/dl (7-18); Calcium 8.4 mg/dl (8.5-10.1); Carbon Dioxide 24 mmol/L (21-32); Chloride 106 mmol/L (98-107); Creatinine Clr Calc Pharmacy 49.8 ml/min; Est GFR (African American) 61.9 ml/min; Est GFR (Non-African American) 53.4 ml/min; Glucose 124 mg/dl (70-99); Magnesium 2.1 mg/dl (1.8-2.4); Potassium 3.6 mmol/L (3.5-5.1); Sodium 140 mmol/L (136-145)
[2020-11-24 21:04] LABS: Alkaline Phosphatase 84 U/L (45-117); Bilirubin,Total 0.3 mg/dl (0.2-1); Globulin 3.7 gm/dl (2.5-4.0); Total Protein 7.2 gm/dl (6.4-8.2); Troponin I < 0.015 ng/ml (0-0.045)
[2020-11-24 21:04] LABS: Appearance Urine Clear (Clear); Bilirubin Urine Negative (Negative); Blood Urine Negative (Negative); Color Urine Yellow; Glucose Urine UA Negative (Negative); Ketones Urine Negative (Negative); Leukocyte Esterase Urine Trace (Negative); Nitrite Urine Negative (Negative); Protein Urine Negative (Negative); Specific Gravity Urine 1.006 (1.000-1.030); Urobilinogen Urine Negative (Negative)
--- NOTE | 2020-11-24 21:08 | Emergency Department Note ---
Impression & Plan Numbness and tingling of right side of face, Right sided numbness ED Provider Note NAME: CABRERA BERUMEN AGE: 70 SEX: F : 1950 ARRIVES VIA: Walk-In INFORMANT: Patient, ED PROVIDER(S): Nestor Avery DO CHIEF COMPLAINT: Neurologic symptoms HPI: The patient is a 70-year-old female who presented to the emergency department for strokelike symptoms. The patient states that when she awoke this morning at 8 AM she was having right upper right lower and right facial numbness. She also describes heaviness in her right upper extremity. The patient also complains of a headache. The patient states that she has had similar symptoms in the past. She was seen here in 2019 and at that time was worked up for stroke. CT CT angiography and MRI were all normal. She was told to come back to the emergency department immediately if symptoms return. The patient woke with the symptoms this morning. She also complains of a slight headache on the right side of her head. She has no nausea or vomiting. She denies having any fever or neck stiffness. The patient states that she has been compliant with all of her outpatient medications. She is not seen her family doctor recently. She denies having any lower extremity swelling or pain. She denies having any chest pain or difficulty breathing. ROS: See above HPI for pertinent positives & negatives. A total of 10 systems reviewed and were otherwise negative. PAST MEDICAL HISTORY: See Below PAST SURGICAL HISTORY: See Below FAMILY HISTORY: See Below SOCIAL HISTORY: See Below HOME MEDICATIONS: See Below ALLERGIES: See Below VITALS: See Below PHYSICAL EXAMINATION: GENERAL: Patient is awake alert in no acute distress patient is resting com fortably and showing no signs of anxiety EYES: The conjunctivae are clear. The pupils are round and reactive. EARS, NOSE, MOUTH AND THROAT: The nose is without any evidence of any deformity. Mucous membranes are moist. Tongue is midline. NECK: The neck is nontender and supple. RESPIRATORY: Normal respiratory effort is noted there is no evidence of wheezing rhonchi or rales CARDIOVASCULAR: Regular rate and rhythm noted there no murmurs rubs or gallops normal S1 normal S2. GASTROINTESTINAL: The abdomen is soft. Abdomen is nontender. MUSCULOSKELETAL/EXTREMITIES: There is no evidence of gross deformity full range of motion is noted in the hips and shoulders. SKIN: There is no obvious evidence of any rash. There are no petechiae, pallor or cyanosis noted. NEUROLOGIC: Patient is awake alert and oriented x3 strength is symmetric patellar reflexes are 2+ bilaterally MEDICAL DECISION MAKING: The patient is a 70-year-old female who presented to the emergency department for an evaluation of right-sided neurologic symptoms. The patient awoke with the symptoms this morning and presented many hours later to the emergency department. She was not a candidate for TPA because of delayed presentation. She did not have any signs of large vessel occlusion and was not a candidate for mechanical thrombectomy. The patient continued to have symptoms in the emergency department. She had a similar episode 2 years ago. She was reevaluated multiple times I discussed the patient's laboratory and radiographic studies with her. Ultimately [facility] have agreed to evaluate the patient in the emergency department for further management and disposition. The patient may require further work-up such as MRI and then evaluation by neurology to further determine course of action. She did have a headache yesterday and this could be consistent with a complex migraine however she does not have any headache at this time. Triage Nursing notes reviewed. Prior medical records reviewed Vital Signs: reviewed and remarkable for elevated blood pressure. Differential diagnosis: Infection, dehydration, metabolic abnormality, hypo/hyperglycemia, electrolyte disturbance, anemia, hypoxia, cardiac sources, intracerebral event, toxicologic, neurologic, as well as other pathologies. ER treatment provided: See below Diagnostics interpreted by me: ECG: EKG was obtained in the emergency department. My interpretation is normal sinus rhythm at 79 bpm. There was no ectopy. There was no acute ST segment abnormalities noted. Anterior T wave inversions were also noted. This was compared to a tracing from January 172018. No significant changes were noted. Cardiac Monitoring: An order was placed for continuous cardiac monitoring. The monitor shows a rate of 85 bpm with sinus rhythm. Laboratory studies: As stated above and show below. Imaging studies: See below Consultation(s): I discussed this case with Dr. Manjarrez who is on-call for the [facility] hospitalist group. Past Med/Surg History Medical History (Updated 11/24/20 @ 21:56 by Nestor Avery DO) Fibromyalgia HLD (hyperlipidemia) HTN (hypertension) Hypothyroidism IBS (irritable bowel syndrome) Moderate persistent asthma Osteoarthritis Seronegative rheumatoid arthritis TIA (transient ischemic attack) Surgical History H/O spinal fusion History of bilateral carpal tunnel release History of cataract surgery History of hysterectomy Family History Father Heart disease Mother Heart disease Brother Heart disease Social History Smoking Status: Never smoker Hx Alcohol Use: Yes Hx Substance Use: No Preferred Language: Divehi Communication Ability: Effective Super[employer] [place] Required: No Beliefs That Will Affect Care: None Current Living Situation: Spouse Feels Safe at Home: Yes Assistive Devices: None Allergies Allergies Allergy/AdvReac Type Severity Reaction Status Date / Time tetracycline Allergy Severe SWELLING Unverified 01/17/19 14:55 meperidine [From Demerol] Allergy Intermediate Rash Unverified 11/24/20 21:54 Penicillins Allergy Intermediate Rash Unverified 11/24/20 21:54 promethazine Allergy Intermediate Very Unverified 11/24/20 21:54 Anxious adalimumab AdvReac Intermediate Body Chills Unverified 11/24/20 21:59 etanercept AdvReac Intermediate Body Chills Unverified 11/24/20 21:59 pseudoephedrine AdvReac Intermediate Elevated Unverified 11/24/20 21:54 Blood Pressure [id number]-[id number] Reductase AdvReac Intermediate Muscle Unverified 11/24/20 21:54 Inhibitor Aches - Even Pravastatin Home Meds Home Medications Medication Instructions Recorded Confirmed allopurinol 300 mg PO DAILY 01/17/19 11/24/20 bisoprolol-hydrochlorothiazide 1 tab PO DAILY 01/17/19 11/24/20 fluticasone propion-salmeterol 1 inh INHALATION BID 01/17/19 11/24/20 [Wixela Inhub] levothyroxine [Synthroid] 125 mcg PO DAILY 01/17/19 11/24/20 lisinopril 10 mg PO DAILY 01/17/19 11/24/20 montelukast 10 mg PO DAILY 01/17/19 11/24/20 calcium carbonate-vitamin D3 1 tab PO DAILY 11/24/20 11/24/20 [Calcium 500 + D (D3)] clopidogrel 75 mg PO DAILY 11/24/20 11/24/20 coenzyme Q10 [Co Q-10] 100 mg PO DAILY 11/24/20 11/24/20 magnesium 250 mg PO DAILY 11/24/20 11/24/20 multivitamin 1 tab PO QAM 11/24/20 11/24/20 Previous Rx's Medication Instructions Recorded hydroxyzine pamoate [Vistaril] 50 mg PO Q6H PRN #10 cap 01/18/19 Results & Data (ED) Vital Signs Vital Signs - 24 hr 11/24/20 20:09 11/24/20 20:24 Temperature 35.9 C L Temperature Source Temporal Artery Scan Pulse Rate 82 Respiratory Rate 18 Respiratory Depth Normal Blood Pressure 162/84 H Blood Pressure Mean 110 Pulse Oximetry 95 Oxygen Delivery Method Room Air Room Air Oxygen Flow Rate 98 Sepsis Recent Fever Within 48 Hours No Sepsis New/Unexplained Change in Mental Status N/A Sepsis Action Taken by Nursing No Action Required Home Medications Current Medication List: was personally reviewed by me Laboratory Data Attestation: I reviewed the patient's lab results. Result diagrams: 11/24/20 20:20 11/24/20 20:20 Lab Results 11/24/20 11/24/20 11/24/20 Range/Units 20:20 20:20 20:20 WBC 12.10 H (4.8-10.8) K/uL RBC 4.56 (4.2-5.4) M/uL Hgb 14.2 (12.0-16.0) g/dL Hct 42.6 (37-47) % MCV 93.4 (80-100) fL MCH 31.1 (25-34) pg MCHC 33.3 (32-36) g/dL RDW Std Deviation 48.2 H (36.4-46.3) fL RDW Coeff of Gray 14.2 (11.5-14.5) % Plt Count 256 (130-400) K/uL MPV 10.2 (7.4-10.4) fL Immature Gran % (Auto) 0.2 % Neut % (Auto) 53.9 % Lymph % (Auto) 36.0 % [place] % (Auto) 6.7 % Eos % (Auto) 2.8 % Baso % (Auto) 0.4 % Neut # (Auto) 6.51 H (1.4-6.5) K/uL Lymph # (Auto) 4.36 H (1.2-3.4) K/uL Montgomery # (Auto) 0.81 H (0.11-0.59) K/uL Eos # (Auto) 0.34 (0-0.5) K/uL Baso # (Auto) 0.05 (0-0.2) K/uL Immature Gran # (Auto) 0.03 H (0.00-0.02) K/uL PT 9.8 (9.0-12.0) Seconds INR 1.0 (0.9-1.1) APTT 23.4 (21.0-31.0) Seconds PTT Ratio 0.9 Sodium 140 (136-145) mmol/L Potassium 3.6 (3.5-5.1) mmol/L Chloride 106 (98-107) mmol/L Carbon Dioxide 24 (21-32) mmol/L Anion Gap 11.0 (3-11) BUN 9 (7-18) mg/dl Creatinine 1.05 (0.6-1.2) mg/dl Est Cr Clr Drug Dosing 49.8 ml/min Est GFR ( Amer) 61.9 ml/min Est GFR (Non-Af Amer) 53.4 ml/min BUN/Creatinine Ratio 8.7 L (10-20) Glucose 124 H (70-99) mg/dl Calcium 8.4 L (8.5-10.1) mg/dl Magnesium 2.1 (1.8-2.4) mg/dl Total Bilirubin 0.3 (0.2-1) mg/dl AST 23 (15-37) U/L ALT 24 (12-78) U/L Alkaline Phosphatase 84 (45-117) U/L Troponin I < 0.015 (0-0.045) ng/ml Total Protein 7.2 (6.4-8.2) gm/dl Albumin 3.5 (3.4-5.0) gm/dl Globulin 3.7 (2.5-4.0) gm/dl Albumin/Globulin Ratio 1.0 (0.9-2) Procalcitonin (0-0.5) ng/ml TSH 0.364 (0.300-4.500) uIu/ml Specimen Hemolysis Urine Color Urine Appearance (Clear) Urine pH (4.5-7.5) Ur Specific [place] (1.000-1.030) Urine Protein (Negative) Urine Glucose (UA) (Negative) Urine Ketones (Negative) Urine Blood (Negative) Urine Nitrite (Negative) Urine Bilirubin (Negative) Urine Urobilinogen (Negative) Ur Leukocyte Esterase (Negative) Urine WBC (Auto) (0-5) /hpf Urine RBC (Auto) (0-4) /hpf U Hyaline Cast (Auto) (0-5) /lpf U Epithel Cells (Auto) (0-5) /lpf Urine Bacteria (Auto) (Negative) COVID-19 Eval Order SARS-CoV-2 (PCR) (Negative) 11/24/20 11/24/20 11/24/20 Range/Units 20:26 20:45 22:05 WBC (4.8-10.8) K/uL RBC (4.2-5.4) M/uL Hgb (12.0-16.0) g/dL Hct (37-47) % MCV (80-100) fL MCH (25-34) pg MCHC (32-36) g/dL RDW Std Deviation (36.4-46.3) fL RDW Coeff of Gray (11.5-14.5) % Plt Count (130-400) K/uL MPV (7.4-10.4) fL Immature Gran % (Auto) % Neut % (Auto) % Lymph % (Auto) % [place] % (Auto) % Eos % (Auto) % Baso % (Auto) % Neut # (Auto) (1.4-6.5) K/uL Lymph # (Auto) (1.2-3.4) K/uL [place] # (Auto) (0.11-0.59) K/uL Eos # (Auto) (0-0.5) K/uL Baso # (Auto) (0-0.2) K/uL Immature Gran # (Auto) (0.00-0.02) K/uL PT (9.0-12.0) Seconds INR (0.9-1.1) APTT (21.0-31.0) Seconds PTT Ratio Sodium (136-145) mmol/L Potassium (3.5-5.1) mmol/L Chloride (98-107) mmol/L Carbon Dioxide (21-32) mmol/L Anion Gap (3-11) BUN (7-18) mg/dl Creatinine (0.6-1.2) mg/dl Est Cr Clr Drug Dosing ml/min Est GFR ( Amer) ml/min Est GFR (Non-Af Amer) ml/min BUN/Creatinine Ratio (10-20) Glucose (70-99) mg/dl Calcium (8.5-10.1) mg/dl Magnesium (1.8-2.4) mg/dl Total Bilirubin (0.2-1) mg/dl AST (15-37) U/L ALT (12-78) U/L Alkaline Phosphatase (45-117) U/L Troponin I (0-0.045) ng/ml Total Protein (6.4-8.2) gm/dl Albumin (3.4-5.0) gm/dl Globulin (2.5-4.0) gm/dl Albumin/Globulin Ratio (0.9-2) Procalcitonin < 0.05 (0-0.5) ng/ml TSH (0.300-4.500) uIu/ml Specimen Hemolysis Urine Color Yellow Urine Appearance Clear (Clear) Urine pH 6.0 (4.5-7.5) Ur Specific [place] 1.006 (1.000-1.030) Urine Protein Negative (Negative) Urine Glucose (UA) Negative (Negative) Urine Ketones Negative (Negative) Urine Blood Negative (Negative) Urine Nitrite Negative (Negative) Urine Bilirubin Negative (Negative) Urine Urobilinogen Negative (Negative) Ur Leukocyte Esterase Trace H (Negative) Urine WBC (Auto) 0 (0-5) /hpf Urine RBC (Auto) 0-4 (0-4) /hpf U Hyaline Cast (Auto) 0 (0-5) /lpf U Epithel Cells (Auto) 0-5 (0-5) /lpf Urine Bacteria (Auto) Negative (Negative) COVID-19 Eval Order Covid19 at [facility] SARS-CoV-2 (PCR) (Negative) 11/24/20 Range/Units 22:05 WBC (4.8-10.8) K/uL RBC (4.2-5.4) M/uL Hgb (12.0-16.0) g/dL Hct (37-47) % MCV (80-100) fL MCH (25-34) pg MCHC (32-36) g/dL RDW Std Deviation (36.4-46.3) fL RDW Coeff of Gray (11.5-14.5) % Plt Count (130-400) K/uL MPV (7.4-10.4) fL Immature Gran % (Auto) % Neut % (Auto) % Lymph % (Auto) % Montgomery % (Auto) % Eos % (Auto) % Baso % (Auto) % Neut # (Auto) (1.4-6.5) K/uL Lymph # (Auto) (1.2-3.4) K/uL [place] # (Auto) (0.11-0.59) K/uL Eos # (Auto) (0-0.5) K/uL Baso # (Auto) (0-0.2) K/uL Immature Gran # (Auto) (0.00-0.02) K/uL PT (9.0-12.0) Seconds INR (0.9-1.1) APTT (21.0-31.0) Seconds PTT Ratio Sodium (136-145) mmol/L Potassium (3.5-5.1) mmol/L Chloride (98-107) mmol/L Carbon Dioxide (21-32) mmol/L Anion Gap (3-11) BUN (7-18) mg/dl Creatinine (0.6-1.2) mg/dl Est Cr Clr Drug Dosing ml/min Est GFR ( Amer) ml/min Est GFR (Non-Af Amer) ml/min BUN/Creatinine Ratio (10-20) Glucose (70-99) mg/dl Calcium (8.5-10.1) mg/dl Magnesium (1.8-2.4) mg/dl Total Bilirubin (0.2-1) mg/dl AST (15-37) U/L ALT (12-78) U/L Alkaline Phosphatase (45-117) U/L Troponin I (0-0.045) ng/ml Total Protein (6.4-8.2) gm/dl Albumin (3.4-5.0) gm/dl Globulin (2.5-4.0) gm/dl Albumin/Globulin Ratio (0.9-2) Procalcitonin (0-0.5) ng/ml TSH (0.300-4.500) uIu/ml Specimen Hemolysis Urine Color Urine Appearance (Clear) Urine pH (4.5-7.5) Ur Specific [place] (1.000-1.030) Urine Protein (Negative) Urine Glucose (UA) (Negative) Urine Ketones (Negative) Urine Blood (Negative) Urine Nitrite (Negative) Urine Bilirubin (Negative) Urine Urobilinogen (Negative) Ur Leukocyte Esterase (Negative) Urine WBC (Auto) (0-5) /hpf Urine RBC (Auto) (0-4) /hpf U Hyaline Cast (Auto) (0-5) /lpf U Epithel Cells (Auto) (0-5) /lpf Urine Bacteria (Auto) (Negative) COVID-19 Eval Order SARS-CoV-2 (PCR) NEGATIVE (Negative) Administered Medications Discontinued Medications Ioversol (Optiray 350 500ml) 120 ml IV ONCE ONE Stop: 11/24/20 21:14 Last Admin: 11/24/20 21:13 Dose: 120 ml Documented by: [id number] Imaging Data Radiologist's Impression: Patient: CABRERA BERUMEN (Female) : 48 Status: ER Date: 11/24/20 21:26 Room #: History: STROKE LIKE SYMPTOMS R SIDED NUMBNESS...HX OF TWO MINI STROKES Slices: 753 Priors: Tech: Sukhjinder Herrera @ [phone] Exams: CTA NECK Contrast: IV Amt: 120 Accession Numbers: [id number] Preliminary Findings Only See Final Report For Complete Findings CTA NECK: Calcified atherosclerotic disease throughout the aortic arch with no aneurysm. Mild intimal thickening of the distal bilateral: carotid arteries otherwise normal common carotid arteries. Mild atherosclerotic plaque at the level of the left bulb. Mild atherosclerotic plaque in the origin of the left internal carotid artery. No evidence of stenosis at these levels. Remainder bilateral internal carotid arteries are normal. Dominant left-sided vertebral artery. Otherwise normal bilateral vertebral arteries. Radiologist: Cathy Ruffin MD Study ready at 21:34 and initial results transmitted at 21:38 Patient: CABRERA BERUMEN (Female) : 48 Status: ER Date: 11/24/20 21:21 Room #: History: STROKE LIKE SYMPTOMS R SIDED NUMBNESS...HX OF TWO MINI STROKES Slices: 590 Priors: Tech: Sukhjinder Herrera @ [phone] Exams: CTA HEAD Contrast: IV Amt: 120 Accession Numbers: [id number] Preliminary Findings Only See Final Report For Complete Findings CTA HEAD: Minimal atherosclerotic disease in the cavernous portion of the bilateral internal carotid arteries. No stenosis. Otherwise normal CT angiogram with no stenosis, occlusion or aneurysm. Normal venous structures. Radiologist: Cathy Ruffin MD Study ready at 21:34 and initial results transmitted at 21:39 Patient: CABRERA BERUMEN (Female) : 48 Status: ER Date: 11/24/20 21:21 Room #: History: STROKE LIKE SYMPTOMS R SIDED NUMBNESS...HX OF TWO MINI STROKES Slices: 58 Priors: Tech: Sukhjinder Herrera @ [id number] Exams: CT HEAD Contrast: Accession Numbers: [id number] Preliminary Findings Only See Final Report For Complete Findings CT HEAD: Comparison: None. No ICH, mass effect or edema. No evidence of acute cortical stroke. Periventricular small vessel ischemic change. Mild generalized brain atrophy. Visualized sinuses and mastoid air cells are clear. Radiologist: Cathy Ruffin MD Study ready at 21:34 and initial results transmitted at 21:36 Discharge Plan Visit Data Chief Complaint: Weakness Stated Complaint: R SIDE NUMB ED Provider: Nestor Avery Discharge Problem: Numbness and tingling of right side of face, Right sided numbness Forms Stand Alone Forms: [facility] [employer] Prescriptions Prescriptions: No Action bisoprolol-hydrochlorothiazide 10-6.25 mg tablet 1 tab PO DAILY RF: 0 levothyroxine [Synthroid] 125 mcg tablet 125 mcg PO DAILY RF: 0 lisinopril 10 mg tablet 10 mg PO DAILY RF: 0 montelukast 10 mg tablet 10 mg PO DAILY RF: 0 allopurinol 300 mg tablet 300 mg PO DAILY RF: 0 fluticasone propion-salmeterol [Wixela Inhub] 250-50 mcg/dose blister with device 1 inh inhalation BID RF: 0 hydroxyzine pamoate [Vistaril] 50 mg capsule 50 mg PO Q6H PRN (Reason: anxiety) Qty: 10 RF: 0 multivitamin Tablet 1 tab PO QAM RF: 0 clopidogrel 75 mg tablet 75 mg PO DAILY RF: 0 magnesium 250 mg Tablet 250 mg PO DAILY RF: 0 coenzyme Q10 [Co Q-10] 100 mg Capsule 100 mg PO DAILY RF: 0 calcium carbonate-vitamin D3 [Calcium 500 + D (D3)] 500 mg(1,250mg) -125 unit Tablet 1 tab PO DAILY RF: 0
[2020-11-24] MEDS ORDERED: OPTIRAY 350 500ml IV ONE (21:13)
[2020-11-24 21:28] LABS: Bacteria Urine Automated Negative (Negative); Cast Urine Automated 0 /lpf (0-5); Epithelial Cell Urine Auto 0-5 /lpf (0-5); RBC Urine Automated 0-4 /hpf (0-4); WBC Urine Automated 0 /hpf (0-5)
[2020-11-24] MEDS ORDERED: POTASSIUM CHLORIDE 20 MEQ in LACTATED RINGER'S 1,000 ML IV STA (22:18)
[2020-11-24 22:41] LABS: Thyroid Stimulating Hormone 0.364 uIu/ml (0.300-4.500)
[2020-11-24] MEDS ORDERED: CALCIUM GLUCONATE 1,000 MG/60 ML BAG IV STA (23:06)
--- NOTE | 2020-11-24 23:35 | History & Physical Report ---
Date of Service November 24, 2020 Assessment & Plan (1) Right sided numbness: R sided numbness/weakness with headache symptoms CVA versus complicated migraine History TIA as per records hypertension, elevated secondary to intracranial process Anxiety contributory hyperlipidemia, on statin Rx rheumatoid arthritis/fibromyalgia, stable as per patient prediabetes, hemoglobin A1c of 5.29 July 2020. OBS PCU Neurochecks Continue Plavix for stroke prevention (Patient hesitant to take additional aspirin for now given severe GI upset from a few years back secondary to medication.) MRI brain Neurology consult Re: Right side numbness/weakness Permissive hypertension until acute stroke ruled out Check lipid profile, update hemoglobin A1c DVT prophylaxis per Lovenox subcu Full code Text document was generated using [employer] voice recognition software. It may contain grammatical or spelling errors. Kindly contact undersigned for clarification of any documentation item in question. History of Present Illness Chief Complaint: Right side weakness/numbness Primary Care Provider: Radha Palmer, History obtained from patient, family, and records. Medical history significant for TIA, hypertension, hyperlipidemia, rheumatoid arthritis, fibromyalgia, prediabetes. Last confinement December 2018 for left face and left arm numbness. Brain MRI negative for CVA. Possible TIA versus complicated migraine as per patient. Last night, patient noted achy headache symptoms. This morning patient still had headache symptoms associated with right face, right arm and right leg weakness/numbness. No chest pain, no S OB. No unusual stress at home. Patient compliant with home meds. SBP noted to be 180s at home. Patient given aspirin by EMS. No change in symptoms as per patient. 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 Allergies Allergy/AdvReac Type Severity Reaction Status Date / Time tetracycline Allergy Severe SWELLING Unverified 01/17/19 14:55 meperidine [From Demerol] Allergy Intermediate Rash Unverified 11/24/20 21:54 Penicillins Allergy Intermediate Rash Unverified 11/24/20 21:54 promethazine Allergy Intermediate Very Unverified 11/24/20 21:54 Anxious aspirin AdvReac Severe GI upset Verified 11/25/20 08:08 adalimumab AdvReac Intermediate Body Chills Unverified 11/24/20 21:59 etanercept AdvReac Intermediate Body Chills Unverified 11/24/20 21:59 pseudoephedrine AdvReac Intermediate Elevated Unverified 11/24/20 21:54 Blood Pressure Ovjgukn-Utw-Iyt Reductase AdvReac Intermediate Muscle Unverified 11/24/20 21:54 Inhibitor Aches - Even Pravastatin Home Medications Medication Instructions Recorded Confirmed Type allopurinol 300 mg PO DAILY 01/17/19 11/24/20 History bisoprolol-hydrochlorothiazide 1 tab PO DAILY 01/17/19 11/24/20 History fluticasone propion-salmeterol 1 inh INHALATION BID 01/17/19 11/24/20 History [Wixela Inhub] levothyroxine [Synthroid] 125 mcg PO DAILY 01/17/19 11/24/20 History lisinopril 10 mg PO DAILY 01/17/19 11/24/20 History montelukast 10 mg PO DAILY 01/17/19 11/24/20 History hydroxyzine pamoate [Vistaril] 50 mg PO Q6H PRN #10 cap 01/18/19 11/24/20 Rx calcium carbonate-vitamin D3 1 tab PO DAILY 11/24/20 11/24/20 History [Calcium 500 + D (D3)] clopidogrel 75 mg PO DAILY 11/24/20 11/24/20 History coenzyme Q10 [Co Q-10] 100 mg PO DAILY 11/24/20 11/24/20 History magnesium 250 mg PO DAILY 11/24/20 11/24/20 History multivitamin 1 tab PO QAM 11/24/20 11/24/20 History Past Med/Surg History Medical History (Updated 11/24/20 @ 21:56 by Nestor Avery DO) Fibromyalgia HLD (hyperlipidemia) HTN (hypertension) Hypothyroidism IBS (irritable bowel syndrome) Moderate persistent asthma Osteoarthritis Seronegative rheumatoid arthritis TIA (transient ischemic attack) Surgical History H/O spinal fusion History of bilateral carpal tunnel release History of cataract surgery History of hysterectomy Family History Father Heart disease Mother Heart disease Brother Heart disease Social History Smoking Status: Never smoker Hx Alcohol Use: Yes Alcohol type: wine Hx Substance Use: No Preferred Language: Macedonian Communication Ability: Effective Peer Tutor Required: No Beliefs That Will Affect Care: None marital status: Current Living Situation: Spouse Other Information That Helps Us Care for You: No Feels Safe at Home: Yes Safety Concerns: Feels Safe At This Time Assistive Devices: None Review of Systems Review of Systems: As per HPI, all 10 systems reviewed, all other ROS negative Physical Exam Physical Exam: GENERAL: Comfortable, pleasant, slightly anxious, obese, no respiratory distress SKIN: Normal color, cool HEENT: [place] palpebral conjunctivae, no ptosis, moist buccal mucosa NECK : Supple, short neck, no tenderness CHEST : CTA, no tenderness HEART : RRR, no obvious murmurs ABDOMEN: Some distention, nontender EXTREMITIES : No LE swelling/tenderness, no other conspicuous deformities noted NEUROLOGIC : Coherent, no facial asymmetry, MMTs 4/5 (R slightly less than the left), no pronator drift, no other gross focality Results & Data Results & Data ([facility]) Vital Signs (Past 12 Hours) Vital Signs Temp Pulse Resp BP Pulse Ox 11/24/20 20:09 35.9 C L 82 18 162/84 H 95 Laboratory Results Laboratory Results WBC 12.10 K/uL (4.8-10.8) H 11/24/20 20:20 RBC 4.56 M/uL (4.2-5.4) 11/24/20 20:20 Hgb 14.2 g/dL (12.0-16.0) 11/24/20 20:20 Hct 42.6 % (37-47) 11/24/20 20:20 MCV 93.4 fL (80-100) 11/24/20 20:20 MCH 31.1 pg (25-34) 11/24/20 20:20 MCHC 33.3 g/dL (32-36) 11/24/20 20:20 RDW Std Deviation 48.2 fL (36.4-46.3) H 11/24/20 20:20 RDW Coeff of Gray 14.2 % (11.5-14.5) 11/24/20 20:20 Plt Count 256 K/uL (130-400) 11/24/20 20:20 MPV 10.2 fL (7.4-10.4) 11/24/20 20:20 Immature Gran % (Auto) 0.2 % 11/24/20 20:20 Neut % (Auto) 53.9 % 11/24/20 20:20 Lymph % (Auto) 36.0 % 11/24/20 20:20 [place] % (Auto) 6.7 % 11/24/20 20:20 Eos % (Auto) 2.8 % 11/24/20 20:20 Baso % (Auto) 0.4 % 11/24/20 20:20 Neut # (Auto) 6.51 K/uL (1.4-6.5) H 11/24/20 20:20 Lymph # (Auto) 4.36 K/uL (1.2-3.4) H 11/24/20 20:20 [place] # (Auto) 0.81 K/uL (0.11-0.59) H 11/24/20 20:20 Eos # (Auto) 0.34 K/uL (0-0.5) 11/24/20 20:20 Baso # (Auto) 0.05 K/uL (0-0.2) 11/24/20 20:20 Immature Gran # (Auto) 0.03 K/uL (0.00-0.02) H 11/24/20 20:20 PT 9.8 Seconds (9.0-12.0) 11/24/20 20:20 INR 1.0 (0.9-1.1) 11/24/20 20:20 APTT 23.4 Seconds (21.0-31.0) 11/24/20 20:20 PTT Ratio 0.9 11/24/20 20:20 Sodium 140 mmol/L (136-145) 11/24/20 20:20 Potassium 3.6 mmol/L (3.5-5.1) 11/24/20 20:20 Chloride 106 mmol/L (98-107) 11/24/20 20:20 Carbon Dioxide 24 mmol/L (21-32) 11/24/20 20:20 Anion Gap 11.0 (3-11) 11/24/20 20:20 BUN 9 mg/dl (7-18) 11/24/20 20:20 Creatinine 1.05 mg/dl (0.6-1.2) 11/24/20 20:20 Est Cr Clr Drug Dosing 49.8 ml/min 11/24/20 20:20 Est GFR ( Amer) 61.9 ml/min 11/24/20 20:20 Est GFR (Non-Af Amer) 53.4 ml/min 11/24/20 20:20 BUN/Creatinine Ratio 8.7 (10-20) L 11/24/20 20:20 Glucose 124 mg/dl (70-99) H 11/24/20 20:20 Calcium 8.4 mg/dl (8.5-10.1) L 11/24/20 20:20 Magnesium 2.1 mg/dl (1.8-2.4) 11/24/20 20:20 Total Bilirubin 0.3 mg/dl (0.2-1) 11/24/20 20:20 AST 23 U/L (15-37) 11/24/20 20:20 ALT 24 U/L (12-78) 11/24/20 20:20 Alkaline Phosphatase 84 U/L (45-117) 11/24/20 20:20 Troponin I < 0.015 ng/ml (0-0.045) 11/24/20 20:20 Total Protein 7.2 gm/dl (6.4-8.2) 11/24/20 20:20 Albumin 3.5 gm/dl (3.4-5.0) 11/24/20 20:20 Globulin 3.7 gm/dl (2.5-4.0) 11/24/20 20:20 Albumin/Globulin Ratio 1.0 (0.9-2) 11/24/20 20:20 Procalcitonin < 0.05 ng/ml (0-0.5) 11/24/20 20:26 TSH 0.364 uIu/ml (0.300-4.500) 11/24/20 20:20 Specimen Hemolysis 11/24/20 20:20 Urine Color Yellow 11/24/20 20:45 Urine Appearance Clear (Clear) 11/24/20 20:45 Urine pH 6.0 (4.5-7.5) 11/24/20 20:45 Ur Specific [place] 1.006 (1.000-1.030) 11/24/20 20:45 Urine Protein Negative (Negative) 06/06/21 20:45 Urine Glucose (UA) Negative (Negative) 11/24/20 20:45 Urine Ketones Negative (Negative) 11/24/20 20:45 Urine Blood Negative (Negative) 11/24/20 20:45 Urine Nitrite Negative (Negative) 11/24/20 20:45 Urine Bilirubin Negative (Negative) 11/24/20 20:45 Urine Urobilinogen Negative (Negative) 11/24/20 20:45 Ur Leukocyte Esterase Trace (Negative) H 11/24/20 20:45 Urine WBC (Auto) 0 /hpf (0-5) 11/24/20 20:45 Urine RBC (Auto) 0-4 /hpf (0-4) 11/24/20 20:45 U Hyaline Cast (Auto) 0 /lpf (0-5) 11/24/20 20:45 U Epithel Cells (Auto) 0-5 /lpf (0-5) 11/24/20 20:45 Urine Bacteria (Auto) Negative (Negative) 11/24/20 20:45 COVID-19 Eval Order Covid19 at [facility] 11/24/20 22:05 SARS-CoV-2 (PCR) NEGATIVE (Negative) 11/24/20 22:[address] head initial read: No ICH, mass-effect or edema. No evidence of acute cortical stroke. Periventricular small vessel ischemic change. Mild generalized brain atrophy. CTA head initial read: Minimal atherosclerotic disease cavernous portion of bilateral internal carotid arteries. No stenosis. Otherwise normal CT angio with no stenosis, occlusion or aneurysm. Normal venous structures. CTA neck: Calcified atherosclerotic disease throughout the aortic arch with no aneurysm. Mild intimal thickening of distal bilateral carotid arteries otherwise normal common carotid arteries. Mild atherosclerotic plaque level of the left bulb. Mild atherosclerotic plaque origin of left ICA. No evidence of stenosis at these levels. Remainder of bilateral internal carotid arteries are normal. Dominant left-sided vertebral artery. Otherwise normal bilateral vertebral arteries. Chest x-ray as per my the patient elevated right hemidiaphragm EKG as per my interpretation: Rate 80, NSR, normal axis, T wave inversion anterior leads
[2020-11-25] MEDS ORDERED: traMADol HCL 50 MG TABLET PO PRN (02:15)
[2020-11-25] MEDS ORDERED: LORazepam 0.5 MG TAB PO STA (02:15)
[2020-11-25] MEDS ORDERED: LORazepam 0.25 MG/0.5 ML VIAL IV PRN ×2 (02:15)
[2020-11-25] MEDS: MONTELUKAST SODIUM 10 MG TABLET PO SCH ×2 (03:16→21:40)
[2020-11-25] MEDS: FLUTICASONE/VILANTEROL 200/25MCG 14 PUFFS/INHALER INH SCH (03:16)
[2020-11-25] MEDS: LEVOTHYROXINE SODIUM 125 MCG TABLET PO SCH (06:02)
[2020-11-25 06:20] LABS: Basophils # (auto) 0.04 K/uL (0-0.2); Basophils % (auto) 0.4 %; Eosinophils # (auto) 0.32 K/uL (0-0.5); Eosinophils % (auto) 3.4 %; Hematocrit (blood only) 40.6 % (37-47); Hemoglobin 13.4 g/dL (12.0-16.0); Immature Granulocytes # (auto) 0.01 K/uL (0.00-0.02); Immature Granulocytes % (auto) 0.1 %; Lymphocytes # (auto) 3.46 K/uL (1.2-3.4); Mean Corpuscular Hemoglobin 31.2 pg (25-34); Mean Corpuscular Volume 94.6 fL (80-100); Mean Platelet Volume 10.3 fL (7.4-10.4); Monocytes # (auto) 0.62 K/uL (0.11-0.59); Monocytes % (auto) 6.6 %; Neutrophils # (auto) 4.89 K/uL (1.4-6.5); Neutrophils % (auto) 52.5 %; Platelet Count 245 K/uL (130-400); RDW Coefficient of Variation 14.3 % (11.5-14.5); RDW Standard Deviation 49.5 fL (36.4-46.3); Red Blood Count 4.29 M/uL (4.2-5.4); White Blood Count 9.34 K/uL (4.8-10.8)
[2020-11-25 06:52] LABS: BUN Creatinine Ratio 11.3 (10-20); Calcium 8.1 mg/dl (8.5-10.1); Creatinine Clr Calc Pharmacy 70.4 ml/min; Est GFR (African American) 94.5 ml/min; Est GFR (Non-African American) 81.5 ml/min; Potassium 3.5 mmol/L (3.5-5.1)
--- NOTE | 2020-11-25 06:56 | XRay Report ---
XR chest 1V portable CLINICAL HISTORY: Stroke Like Symptoms COMPARISON STUDY: 01/17/2019 FINDINGS: There is mild elevation right hemidiaphragm. The heart is normal in size. There is no failu re. There is no focal pulmonary consolidation. There are no pleural effusions.[ IMPRESSION: No active disease in the chest. ACT 112: Negative or not required by law. Electronically signed by: Roscoe Perez M.D. 11/25/2020 6:55 AM
--- NOTE | 2020-11-25 07:21 | CT Scan Report ---
HEAD CT NONCONTRAST CT DOSE: HISTORY: Right-sided numbness. Stroke Like Symptoms TECHNIQUE: Multiaxial CT images of the head were performed without the use of intravenous contrast. A utomated exposure control was utilized for this study. A dose lowering technique was utilized adheri ng to the principles of ALARA. Comparison: Head CT 01/17/2019. Findings: The paranasal sinuses and mastoid air cells are clear. The calvarium and skull base are int act. The ventricles and sulci are within normal limits. There is no mass, hematoma, midline shift, or acute infarct. Impression: No acute intracranial abnormality. ACT 112: Negative or not required by law. Electronically signed by: Maverick Hernández M.D. 11/25/2020 7:20 AM
--- NOTE | 2020-11-25 07:29 | CT Scan Report ---
CT angio neck with con CLINICAL HISTORY: Stroke Like Symptoms COMPARISON STUDY: 01/17/2019 TECHNIQUE: CT angiography was performed from the aortic arch to the skull base. MIP imaging was perfo rmed. The patient was scanned in a dynamic helical fashion during intravenous administration of 120 c c of Optiray. A dose lowering technique was utilized adhering to the principles of ALARA. CT DOSE: Technique: CT angiogram of the carotid and vertebral arteries was obtained using intravenous contrast and 3-D reconstruction. NASCET criteria was utilized. Findings: There is a right paratracheal lymph node at the upper limits of normal in size. The right carotid revealed no evidence of aneurysm and no evidence of dissection. There is no evidenc e of hemodynamic significant stenosis. The left carotid revealed no evidence of hemodynamic significant stenosis. There is no evidence of an eurysm. There is no evidence of dissection. There is no evidence of hemodynamically significant vertebral stenosis. There is no evidence of verte bral dissection. There is a dominant left vertebral artery. The right vertebral artery terminates in a PICA branch. IMPRESSION: 1. No evidence of hemodynamically significant carotid or vertebral artery stenosis. No evidence of di ssection. 2. Mediastinal lymph nodes at the upper limits of normal in size. ACT 112: Negative or not required by law. Electronically signed by: Roscoe Perez M.D. 11/25/2020 7:28 AM
--- NOTE | 2020-11-25 07:32 | CT Scan Report ---
CT angio head w con CLINICAL HISTORY: Stroke Like Symptoms TECHNIQUE: CT angiography of the head was performed in a dynamic helical fashion during intravenous a dministration of 120 cc of Optiray. MIP imaging was performed. A dose lowering technique was utilized adhering to the principles of ALARA. CT DOSE: 1091.07 mGy.cm COMPARISON STUDY: January 17, 2019 FINDINGS: There are no lesion suspicious for aneurysm. There are no major intracranial branch occlusi ons. The dural venous sinuses appear patent. There is a origin of the left posterior cerebral a rtery. IMPRESSION: Unremarkable CT angiography the brain for age. ACT 112: Negative or not required by law. Electronically signed by: Roscoe Perez M.D. 11/25/2020 7:30 AM
[2020-11-25] MEDS: allopurinoL 300 MG TAB PO SCH (08:51)
[2020-11-25] MEDS: CLOPIDOGREL BISULFATE 75 MG TAB PO SCH (08:51)
[2020-11-25] MEDS: MULTIVITAMIN TAB PO SCH (08:51)
[2020-11-25] MEDS: ENOXAPARIN INJ 40 MG/0.4 ML SYR SQ SCH (08:52)
[2020-11-25] MEDS ORDERED: MONTELUKAST SODIUM 10 MG TABLET PO SCH (09:00)
[2020-11-25] MEDS ORDERED: FLUTICASONE/SALMETEROL 250/50 (ADVAIR) 14 PUFF/1 INHALER INH SCH (09:00)
[2020-11-25] MEDS: ACETAMINOPHEN 325 MG TAB PO PRN ×2 (09:03→21:39)
[2020-11-25 09:36] LABS: Estimated Average Glucose 120 mg/dl; Hemoglobin A1C 5.8 % (4.5-5.6)
--- NOTE | 2020-11-25 09:37 | Neurology Consultation ---
Date of Consultation November 25, 2020 Assessment & Plan (1) Numbness and tingling of right side of face: 1. MRI brain with no acute findings 2. CTA head and neck no significant stenosis 3. TTE- if not already done 4. optimize HTN HLD, LDL <70 5. continue plavix 75 mg - allergic to aspirin 6. ZIO as outpatient for completeness 7. will follow in our office in 4-6 weeks with Julissa Ackerman PAC neurology 8. may be a complex migraine with residual but unable to verify so will continue to call TIA Present on Admission?: Yes (2) Anxiety: 1. psychiatry if anxiety and depression are an issues 2. patient claims she does not have any anxiety or depression at this time Present on Admission?: Yes Supervising Physician Co-Signing Physician Notes I have seen and discussed above patient with Dr Mohan Ga, neurology I have interviewed and examined this woman and have discussed the case with Julissa Ackerman with whom she has a prior therapeutic relationship and who saw her for a very similar event 2 years ago that involved her left side not the right and was associated with a headache Her imaging studies then and now remain unremarkable and her complaints now consist of a peculiar heavy sensation on the right side which on examination is not associated with any objective sensory or motor deficit, drift pronation sign, clumsiness, gait disturbance, cranial neuropathy etc. These possibly have been migrainous auras a protracted type but at her age with vascular risk factors we have to err on the side of caution and call these transient ischemic events and treat accordingly In her case this would involve dual antiplatelet therapy but her history suggests that aspirin was so poorly tolerated in the past I think all we can do now is continue the Plavix, repeat the Zio patch and get another echocardiogram We will plan of the visit to bedside tomorrow Mohan Ga MD History of Present Illness Reason for Consultation: R sided weakness Requesting Physician: Dallas Wu MD Attending Physician: Dallas Wu MD History of Present Illness Aj is a 70 year old female with a PMH left side facial numbness involving arm and leg who was seen 01/18/2019 after presenting she had a full stroke work up. She presented to the ED again for strokelike symptoms but this time on the right. She awoke in the morning at 8 AM she was having right upper right lower and right facial numbness. She also describes heaviness in her right upper extremity and a headache. She has had similar symptoms in the past. In 2019 the CTA head and neck and MRI were all normal. She was last seen in our office 08/26/2020 after presenting with weakness and numbness and was found to have no findings on an MRI brain or carotid doppler. She was continued on aspirin 81 mg and plavix. and was told these may be complex migraine vs TIAs. however she could not tolerate aspirin so she is currently on plavix only. denies CP, SOB, abdominal pain, +numbness and heaviness in right arm/leg, and numbness in face. Allergies Allergy/AdvReac Type Severity Reaction Status Date / Time tetracycline Allergy Severe SWELLING Unverified 01/17/19 14:55 meperidine [From Demerol] Allergy Intermediate Rash Unverified 11/24/20 21:54 Penicillins Allergy Intermediate Rash Unverified 11/24/20 21:54 promethazine Allergy Intermediate Very Unverified 11/24/20 21:54 Anxious aspirin AdvReac Severe GI upset Verified 11/25/20 08:08 adalimumab AdvReac Intermediate Body Chills Unverified 11/24/20 21:59 etanercept AdvReac Intermediate Body Chills Unverified 11/24/20 21:59 pseudoephedrine AdvReac Intermediate Elevated Unverified 11/24/20 21:54 Blood Pressure Sscxbnw-Uty-Nsf Reductase AdvReac Intermediate Muscle Unverified 11/24/20 21:54 Inhibitor Aches - Even Pravastatin Home Medications Medication Instructions Recorded Confirmed Type allopurinol 300 mg PO DAILY 01/17/19 11/24/20 History bisoprolol-hydrochlorothiazide 1 tab PO DAILY 01/17/19 11/24/20 History fluticasone propion-salmeterol 1 inh INHALATION BID 01/17/19 11/24/20 History [Wixela Inhub] levothyroxine [Synthroid] 125 mcg PO DAILY 01/17/19 11/24/20 History lisinopril 10 mg PO DAILY 01/17/19 11/24/20 History montelukast 10 mg PO DAILY 01/17/19 11/24/20 History hydroxyzine pamoate [Vistaril] 50 mg PO Q6H PRN #10 cap 01/18/19 11/24/20 Rx calcium carbonate-vitamin D3 1 tab PO DAILY 11/24/20 11/24/20 History [Calcium 500 + D (D3)] clopidogrel 75 mg PO DAILY 11/24/20 11/24/20 History coenzyme Q10 [Co Q-10] 100 mg PO DAILY 11/24/20 11/24/20 History magnesium 250 mg PO DAILY 11/24/20 11/24/20 History multivitamin 1 tab PO QAM 11/24/20 11/24/20 History Patient History Medical History (Updated 11/24/20 @ 21:56 by Nestor Avery DO) Fibromyalgia HLD (hyperlipidemia) HTN (hypertension) Hypothyroidism IBS (irritable bowel syndrome) Moderate persistent asthma Osteoarthritis Seronegative rheumatoid arthritis TIA (transient ischemic attack) Surgical History H/O spinal fusion History of bilateral carpal tunnel release History of cataract surgery History of hysterectomy Family History Father Heart disease Mother Heart disease Brother Heart disease Social History Smoking Status: Never smoker Hx Alcohol Use: Yes Alcohol type: wine Hx Substance Use: No Preferred Language: Eritrean Communication Ability: Effective Workers Compensation Claims Adjuster Required: No Beliefs That Will Affect Care: None marital status: Current Living Situation: Spouse Other Information That Helps Us Care for You: No Feels Safe at Home: Yes Safety Concerns: Feels Safe At This Time Assistive Devices: None Review of Systems Review of Systems: All systems reviewed & are unremarkable except as noted in HPI & below Physical Exam Physical Exam: Physical Exam: Constitutional: appearance over nourished, healthy Ears, Nose, Mouth and Throat: mucous membranes moist, no injection and skin nor mal, eyes normal Cardiovascular: normal S-1 and S-2 and regular rate and rhythm Respiratory: clear to auscultation (CTA) Musculoskeletal: no peripheral edema and good distal pulses Skin: no stigmata of neurocutaneous disease noted and normal and intact Eyes: extraocular muscles intact (EOMI) and pupils equal, round and reactive to light (PERRL) NEUROLOGIC EXAMINATION: Mental status: Alert and interactive Oriented to person Speech fluent with no evidence of aphasia Cranial Nerves smile eye brow raise symmetric Reflexes: Deep tendon reflexes were symmetrical and graded 2/5. down going toes Sensory: light cool touch Coordination: finger to nose no bipass Gait/Stance: Posture normal. Gait normal: with steady with steps, base, turning, tandem gait. Motor: slight pronator drift on right of out stretched arms with eyes closed. Strength: hand snow removal/plowing biceps triceps bilaterally 5/5, hip flex 5/5 Results & Data ([facility]) Vital Signs (Past 12 Hours) Vital Signs Temp Pulse Pulse Pulse Resp BP BP 11/25/20 07:33 36.7 C 83 18 154/78 H 11/25/20 04:51 78 11/25/20 02:49 36.9 C 77 18 151/76 H 11/25/20 02:20 36.9 C 77 18 151/76 H 11/25/20 01:30 73 10 L 142/74 H 11/25/20 01:00 74 12 137/81 11/25/20 00:00 74 14 154/78 H 11/24/20 23:00 75 14 135/62 11/24/20 22:07 78 17 131/65 Pulse Ox 11/25/20 07:33 94 11/25/20 04:51 11/25/20 02:49 11/25/20 02:20 96 11/25/20 01:30 95 11/25/20 01:00 94 11/25/20 00:00 94 11/24/20 23:00 94 11/24/20 22:07 94 Laboratory Results Abnormal lab results 11/24/20 11/24/20 11/24/20 Range/Units 20:20 20:20 20:45 WBC 12.10 H (4.8-10.8) K/uL RDW Std Deviation 48.2 H (36.4-46.3) fL Neut # (Auto) 6.51 H (1.4-6.5) K/uL Lymph # (Auto) 4.36 H (1.2-3.4) K/uL [place] # (Auto) 0.81 H (0.11-0.59) K/uL Immature Gran # (Auto) 0.03 H (0.00-0.02) K/uL Chloride (98-107) mmol/L BUN/Creatinine Ratio 8.7 L (10-20) Glucose 124 H (70-99) mg/dl Hemoglobin A1c (4.5-5.6) % Calcium 8.4 L (8.5-10.1) mg/dl Ur Leukocyte Esterase Trace H (Negative) 11/25/20 11/25/20 11/25/20 Range/Units 05:48 05:48 05:48 WBC (4.8-10.8) K/uL RDW Std Deviation 49.5 H (36.4-46.3) fL Neut # (Auto) (1.4-6.5) K/uL Lymph # (Auto) 3.46 H (1.2-3.4) K/uL [place] # (Auto) 0.62 H (0.11-0.59) K/uL Immature Gran # (Auto) (0.00-0.02) K/uL Chloride 110 H (98-107) mmol/L BUN/Creatinine Ratio (10-20) Glucose (70-99) mg/dl Hemoglobin A1c 5.8 H (4.5-5.6) % Calcium 8.1 L (8.5-10.1) mg/dl Ur Leukocyte Esterase (Negative) Diagnostic Findings CT head-The paranasal sinuses and mastoid air cells are clear. The calvarium and skull base are intact. The ventricles and sulci are within normal limits. There is no mass, hematoma, midline shift, or acute infarct. Unremarkable CT angiography the brain for age. CTA neck- No evidence of hemodynamically significant carotid or vertebral artery stenosis. No evidence of dissection. Mediastinal lymph nodes at the upper limi ts of normal in size. MRI brain- No acute intracranial abnormality. No acute or subacute infarct.
[2020-11-25] MEDS: VENLAFAXINE HCL XR 37.5 MG CAPXR PO SCH (09:51)
--- NOTE | 2020-11-25 12:00 | Magnetic Resonance Report ---
MR brain wo con HISTORY: 70 years-old Female cva acute strokelike symptoms COMPARISON: Head CT 11/24/2020, brain MRI 01/17/2019 TECHNIQUE: Multiplanar multisequence MRI of the brain was obtained without the use of IV contrast. FINDINGS: No restricted diffusion to suggest acute or subacute infarct. No acute intracranial hemorrhage, midli ne shift, abnormal extra-axial collection, hydrocephalus or intracranial mass. No pathologic blooming artifact. Mild age-related involutional changes. Minimal scattered T2/FLAIR hyperintense foci throug hout the white matter are suggestive of chronic microvascular ischemic disease. The cerebral venous s inuses and major arterial flow voids are patent. The mastoid air cells and paranasal sinuses are carline r. Prior bilateral lens repair. The skull, orbits and soft tissues are otherwise unremarkable. IMPRESSION: No acute intracranial abnormality. No acute or subacute infarct. ACT 112: Negative or not required by law. The above report was generated using voice recognition software. It may contain grammatical, syntax o r spelling errors. Electronically signed by: Miguel Drummond M.D. 11/25/2020 11:58 AM
--- NOTE | 2020-11-25 13:27 | Hospitalist Progress Note ---
Date of Service November 25, 2020 Assessment & Plan (1) Right sided numbness: R sided numbness/weakness with headache symptoms History of TIA without any history of stroke and/or sequelae CVA versus complicated migraine CT of the head and neck unremarkable MRI of the brainno acute intracranial abnormality. No acute or subacute infarct Appreciate neurology input and recommendation We will get PT and OT evaluation before discharge Hypertension, elevated secondary to intracranial process Remains on the upper side of acceptable limit Anxiety contributory Hyperlipidemia, on statin Rx Rheumatoid arthritis/fibromyalgia, stable as per patient Prediabetes, hemoglobin A1c of 5.29 July 2020. DVT prophylaxis per Lovenox subcu Full code Admission and Anticipated Discharge Date Admission Date: November 24, 2020 Subjective 11/25/2020 The patient was seen and examined in medical telemetry unit She is a 70-year-old obese female with significant past medical history of TIA, hypertension, hyperlipidemia, rheumatoid arthritis, fibromyalgia and prediabetes was admitted with strokelike symptoms yesterday She has been complaining of numbness and weakness involving the right side of the body including face and extremities Slightly better since this morning Did not have any other neurological symptoms Review of Systems Review of Systems: All systems reviewed and are unremarkable except as noted below Neurologic: + localized weakness (Involving the right-sided extremities) and + numbness (Right side of the face and right sided extremities) Physical Exam Physical Exam: Sitting on a chair without any acute distress Constitutional: well developed, well nourished, + ill appearing and + obese Eyes: PERRL, conjunctivae normal, anicteric sclerae ENMT: external ear and nose normal, oropharynx normal Neck: trachea midline, no thyromegaly Respiratory: no respiratory distress Auscultation: lungs clear to auscultation bilaterally Cardiovascular: Rate/Rhythm: regular rate and regular rhythm Heart Sounds: no murmur Extremities: + edema (Trace edema bilaterally) Gastrointestinal (Abdomen): Inspection/Auscultation: normal bowel sounds; abdomen not distended Percussion/Palpation: abdomen soft; abdomen nontender Musculoskeletal: No acute arthritis in any joint Neurologic: CN's II-XI intact bilaterally Alert, awake and oriented x3. Right-sided weakness involving the upper and lower extremities. No significant sensory impairment Lymphatic: no cervical or axillary lymphadenopathy Results & Data Results & Data ([facility]) Vital Signs (Past 12 Hours) Vital Signs Temp Pulse Pulse Pulse Resp BP BP 11/25/20 07:33 36.7 C 83 18 154/78 H 11/25/20 04:51 78 11/25/20 02:49 36.9 C 77 18 151/76 H 11/25/20 02:20 36.9 C 77 18 151/76 H 11/25/20 01:30 73 10 L 142/74 H Pulse Ox 11/25/20 07:33 94 11/25/20 04:51 11/25/20 02:49 11/25/20 02:20 96 11/25/20 01:30 95 Laboratory Results Short CBC 11/24/20 11/25/20 Range/Units 20:20 05:48 WBC 12.10 H 9.34 (4.8-10.8) K/uL Hgb 14.2 13.4 (12.0-16.0) g/dL Hct 42.6 40.6 (37-47) % Plt Count 256 245 (130-400) K/uL BMP 11/24/20 11/25/20 20:20 05:48 Sodium 140 145 Potassium 3.6 3.5 Chloride 106 110 H Carbon Dioxide 24 29 BUN 9 8 Creatinine 1.05 0.74 D Glucose 124 H 98 Calcium 8.4 L 8.1 L Cardiac Enzymes 11/24/20 Range/Units 20:20 Troponin I < 0.015 (0-0.045) ng/ml Liver Function 11/24/20 Range/Units 20:20 Total Bilirubin 0.3 (0.2-1) mg/dl AST 23 (15-37) U/L ALT 24 (12-78) U/L Alkaline Phosphatase 84 (45-117) U/L Albumin 3.5 (3.4-5.0) gm/dl Urine 11/24/20 Range/Units 20:45 Urine Color Yellow Urine Appearance Clear (Clear) Urine pH 6.0 (4.5-7.5) Ur Specific [place] 1.006 (1.000-1.030) Urine Protein Negative (Negative) Urine Glucose (UA) Negative (Negative) Medications Administered Current Inpatient Medications Acetaminophen (Acetaminophen 325 Mg Tab) 650 mg PO Q4H PRN PRN Reason: Pain or Fever Stop: 12/25/20 02:14 Last Admin: 11/25/20 09:03 Dose: 650 mg Documented by: Allopurinol (Allopurinol 300 Mg Tab) 300 mg PO DAILY SUSHILA Stop: 12/25/20 08:59 Last Admin: 11/25/20 08:51 Dose: 300 mg Documented by: Clopidogrel Bisulfate (Clopidogrel Bisulfate 75 Mg Tab) 75 mg PO DAILY SUSHILA Stop: 12/25/20 08:59 Last Admin: 11/25/20 08:51 Dose: 75 mg Documented by: Diclofenac Sodium (Diclofenac Sod 1% Gel 100 Gm Tube) 4 gm EXT BID SUSHILA Stop: 12/25/20 20:59 Enoxaparin Sodium (Enoxaparin Inj 40 Mg/0.4 Ml Syr) 40 mg SQ QAM S[facility]IL[facility] Stop: 12/25/20 08:59 Last Admin: 11/25/20 08:52 Dose: 40 mg Documented by: Fluticasone/Vilanterol (Fluticasone/Vilanterol 200/25mcg 14 Puffs/Inhaler) 1 puffs INH DAILY SUSHILA Stop: 12/25/20 02:59 Last Admin: 11/25/20 03:16 Dose: 1 puffs Documented by: Potassium Chloride 20 meq/ (Lactated Ringer's) 1,010 mls @ 50 mls/hr IV .[id number] STA Stop: 11/25/20 18:29 Last Admin: 11/24/20 23:53 Dose: 50 mls/hr Documented by: Lorazepam (Ativan) 0.25 mg in 0.5 mls @ 0.5 mls/min IV Q1H PRN PRN Reason: Anxiety/Agitation Stop: 11/25/20 18:00 Last Admin: 11/25/20 10:09 Dose: 0.5 mls/min Documented by: Lorazepam (Ativan) 0.25 mg in 0.5 mls @ 0.5 mls/min IV Q4H PRN PRN Reason: Anxiety Stop: 12/25/20 02:14 Levothyroxine Sodium (Levothyroxine Sodium 125 Mcg Tablet) 125 mcg PO DAILYBB SUSHILA Stop: 12/25/20 06:29 Last Admin: 11/25/20 06:02 Dose: 125 mcg Documented by: Montelukast Sodium (Montelukast Sodium 10 Mg Tablet) 10 mg PO HS SUSHILA Stop: 12/25/20 02:44 Last Admin: 11/25/20 03:16 Dose: 10 mg Documented by: Multivitamins (Multivitamin Tab) 1 tab PO QAM [facility] Stop: 12/25/20 08:59 Last Admin: 11/25/20 08:51 Dose: 1 tab Documented by: Tramadol HCl (Tramadol Hcl 50 Mg Tablet) 25 - 50 mg PO Q4H PRN PRN Reason: Pain Stop: 12/25/20 02:14 Venlafaxine HCl (Venlafaxine Hcl Xr 37.5 Mg Capxr) 37.5 mg PO QAM [facility] Stop: 12/25/20 08:59 Last Admin: 11/25/20 09:51 Dose: 37.5 mg Documented by:
[2020-11-25] MEDS ORDERED: ZOLPIDEM TARTRATE 5 MG TAB PO PRN (15:53)
[2020-11-25] MEDS: DICLOFENAC SOD 1% GEL 100 GM TUBE EXT SCH (21:40)
--- NOTE | 2020-11-25 22:04 | Electrocardiogram Report ---
Test Reason : Blood Pressure : / mmHG Vent. Rate : 079 BPM Atrial Rate : 079 BPM P-R Int : 184 ms QRS Dur : 076 ms QT Int : 390 ms P-R-T Axes : 064 051 078 degrees QTc Int : 447 ms Normal sinus rhythm T wave abnormality, consider anterior ischemia Abnormal ECG When compared with ECG of 17-JAN-2019 14:39, No significant change was found Confirmed by Jeremi Ray ([id number]) on 11/25/2020 10:04:27 PM Referred By: REFERRED SELF Confirmed By:Jeremi Ray
[2020-11-26] MEDS: LEVOTHYROXINE SODIUM 125 MCG TABLET PO SCH (05:50)
[2020-11-26] MEDS: MULTIVITAMIN TAB PO SCH (07:45)
[2020-11-26] MEDS: CLOPIDOGREL BISULFATE 75 MG TAB PO SCH (07:45)
[2020-11-26] MEDS: allopurinoL 300 MG TAB PO SCH (07:45)
[2020-11-26] MEDS: ENOXAPARIN INJ 40 MG/0.4 ML SYR SQ SCH (07:46)
[2020-11-26] MEDS: DICLOFENAC SOD 1% GEL 100 GM TUBE EXT SCH (07:46)
[2020-11-26] MEDS: FLUTICASONE/VILANTEROL 200/25MCG 14 PUFFS/INHALER INH SCH (07:46)
[2020-11-26] MEDS: VENLAFAXINE HCL XR 37.5 MG CAPXR PO SCH (07:47)
[2020-11-26 07:50] LABS: Basophils # (auto) 0.06 K/uL (0-0.2); Basophils % (auto) 0.8 %; Eosinophils # (auto) 0.44 K/uL (0-0.5); Eosinophils % (auto) 5.5 %; Hematocrit (blood only) 41.4 % (37-47); Hemoglobin 13.6 g/dL (12.0-16.0); Immature Granulocytes # (auto) 0.01 K/uL (0.00-0.02); Immature Granulocytes % (auto) 0.1 %; Lymphocytes # (auto) 3.15 K/uL (1.2-3.4); Lymphocytes % (auto) 39.5 %; Mean Corpuscular Hemoglobin 31.3 pg (25-34); Mean Corpuscular Hgb Conc 32.9 g/dL (32-36); Mean Corpuscular Volume 95.2 fL (80-100); Mean Platelet Volume 10.3 fL (7.4-10.4); Monocytes % (auto) 6.3 %; Neutrophils # (auto) 3.81 K/uL (1.4-6.5); Neutrophils % (auto) 47.8 %; Platelet Count 236 K/uL (130-400); RDW Coefficient of Variation 14.2 % (11.5-14.5); RDW Standard Deviation 49.7 fL (36.4-46.3); Red Blood Count 4.35 M/uL (4.2-5.4); White Blood Count 7.97 K/uL (4.8-10.8)
[2020-11-26 08:15] LABS: BUN Creatinine Ratio 18.3 (10-20); Calcium 8.3 mg/dl (8.5-10.1); Creatinine Clr Calc Pharmacy 76.8 ml/min; Potassium 4.1 mmol/L (3.5-5.1)
[2020-11-26] MEDS: ACETAMINOPHEN 325 MG TAB PO PRN (13:24)
[2020-11-26] MEDS ORDERED: bisacodyL 10 MG SUPP PR STA (13:26)
[2020-11-26] MEDS ORDERED: SENNA 8.6 MG TAB PO ONE (13:28)
--- NOTE | 2020-11-26 13:33 | Hospitalist Progress Note ---
Date of Service November 26, 2020 Assessment & Plan (1) Right sided numbness: R sided numbness/weakness with headache symptoms History of TIA without any history of stroke and/or sequelae CVA versus complicated migraine CT of the head and neck unremarkable MRI of the brainno acute intracranial abnormality. No acute or subacute infarct Appreciate neurology input and recommendation We will get PT and OT evaluation before discharge-did very well with PT and OT Clinically much better with minimal weakness involving the right side extremities Has been waiting for echocardiogram before discharge this afternoon We will continue with Plavix and will have a Zio patch as an outpatient Neurology follow-up in 3 to 4 weeks Hypertension, elevated secondary to intracranial process Remains on the upper side of acceptable limit Anxiety contributory Blood pressure remains controlled Hyperlipidemia, on statin Rx Rheumatoid arthritis/fibromyalgia, stable as per patient Prediabetes, hemoglobin A1c of 5.29 July 2020. DVT prophylaxis per Lovenox subcu Full code Likely discharge this afternoon provided request complete Admission and Anticipated Discharge Date Admission Date: November 24, 2020 Subjective 11/25/2020 The patient was seen and examined in medical telemetry unit She is a 70-year-old obese female with significant past medical history of TIA, hypertension, hyperlipidemia, rheumatoid arthritis, fibromyalgia and prediabetes was admitted with strokelike symptoms yesterday She has been complaining of numbness and weakness involving the right side of the body including face and extremities Slightly better since this morning Did not have any other neurological symptoms 11/26/2020 The patient was seen and examined in medical telemetry unit She does not have any more numbness involving the right side extremities or face Still has some weakness Denies any other symptoms Review of Systems Review of Systems: As per HPI, all 10 systems reviewed, all other ROS negative Neurologic: + localized weakness (Involving the right-sided extremities) and + numbness (Right side of the face and right sided extremities) Physical Exam Physical Exam: Sitting on a chair without any acute distress Constitutional: well developed, well nourished, + ill appearing and + obese Eyes: PERRL, conjunctivae normal, anicteric sclerae ENMT: external ear and nose normal, oropharynx normal Neck: trachea midline, no thyromegaly Respiratory: no respiratory distress Auscultation: lungs clear to auscult ation bilaterally Cardiovascular: Rate/Rhythm: regular rate and regular rhythm Heart Sounds: no murmur Extremities: + edema (Trace edema bilaterally) Gastrointestinal (Abdomen): Inspection/Auscultation: normal bowel sounds; abdomen not distended Percussion/Palpation: abdomen soft; abdomen nontender Musculoskeletal: No acute arthritis in any joint Neurologic: CN's II-XI intact bilaterally Alert, awake and oriented x3. Questionable weakness involving the right side extremities otherwise no numbness and or tingling Lymphatic: no cervical or axillary lymphadenopathy Results & Data Results & Data ([facility]) Vital Signs (Past 12 Hours) Vital Signs Temp Pulse Resp BP Pulse Ox 11/26/20 11:54 36.5 C 77 20 127/73 92 11/26/20 07:40 36.6 C 78 20 148/80 H 96 11/26/20 05:00 36.4 C L 85 18 148/84 H 96 Laboratory Results Short CBC 11/26/20 Range/Units 06:56 WBC 7.97 (4.8-10.8) K/uL Hgb 13.6 (12.0-16.0) g/dL Hct 41.4 (37-47) % Plt Count 236 (130-400) K/uL BMP 11/26/20 06:56 Sodium 143 Potassium 4.1 D Chloride 111 H Carbon Dioxide 28 BUN 13 D Creatinine 0.68 Glucose 90 Calcium 8.3 L Medications Administered Current Inpatient Medications Acetaminophen (Acetaminophen 325 Mg Tab) 650 mg PO Q4H PRN PRN Reason: Pain or Fever Stop: 12/25/20 02:14 Last Admin: 11/26/20 13:24 Dose: 650 mg Documented by: Allopurinol (Allopurinol 300 Mg Tab) 300 mg PO DAILY [facility] Stop: 12/25/20 08:59 Last Admin: 11/26/20 07:45 Dose: 300 mg Documented by: Clopidogrel Bisulfate (Clopidogrel Bisulfate 75 Mg Tab) 75 mg PO DAILY SUSHILA Stop: 12/25/20 08:59 Last Admin: 11/26/20 07:45 Dose: 75 mg Documented by: Diclofenac Sodium (Diclofenac Sod 1% Gel 100 Gm Tube) 4 gm EXT BID SUSHILA Stop: 12/25/20 20:59 Last Admin: 11/26/20 07:46 Dose: 4 gm Documented by: Enoxaparin Sodium (Enoxaparin Inj 40 Mg/0.4 Ml Syr) 40 mg SQ QAM [facility]USH[facility] Stop: 12/25/20 08:59 Last Admin: 11/26/20 07:46 Dose: 40 mg Documented by: Fluticasone/Vilanterol (Fluticasone/Vilanterol 200/25mcg 14 Puffs/Inhaler) 1 puffs INH DAILY SUSHILA Stop: 12/25/20 02:59 Last Admin: 11/26/20 07:46 Dose: 1 puffs Documented by: Lorazepam (Ativan) 0.25 mg in 0.5 mls @ 0.5 mls/min IV Q4H PRN PRN Reason: Anxiety Stop: 12/25/20 02:14 Levothyroxine Sodium (Levothyroxine Sodium 125 Mcg Tablet) 125 mcg PO DAILYBB [facility] Stop: 12/25/20 06:29 Last Admin: 11/26/20 05:50 Dose: 125 mcg Documented by: Montelukast Sodium (Montelukast Sodium 10 Mg Tablet) 10 mg PO HS [facility] Stop: 12/25/20 02:44 Last Admin: 11/25/20 21:40 Dose: 10 mg Documented by: Multivitamins (Multivitamin Tab) 1 tab PO QAM [facility] Stop: 12/25/20 08:59 Last Admin: 11/26/20 07:45 Dose: 1 tab Documented by: Sennosides (Senna 8.6 Mg Tab) 17.2 mg PO QAM [facility] Stop: 11/26/20 13:29 Tramadol HCl (Tramadol Hcl 50 Mg Tablet) 25 - 50 mg PO Q4H PRN PRN Reason: Pain Stop: 12/25/20 02:14 Venlafaxine HCl (Venlafaxine Hcl Xr 37.5 Mg Capxr) 37.5 mg PO QAM [facility] Stop: 12/25/20 08:59 Last Admin: 11/26/20 07:47 Dose: 37.5 mg Documented by: Zolpidem Tartrate (Zolpidem Tartrate 5 Mg Tab) 5 mg PO HS PRN PRN Reason: Sleep Stop: 12/25/20 15:52 Last Admin: 11/25/20 21:39 Dose: 5 mg Documented by:
--- NOTE | 2020-11-27 09:10 | Discharge Summary ---
Date of Service November 27, 2020 Admission HPI Per Admitting Provider History obtained from patient, family, and records. Medical history significant for TIA, hypertension, hyperlipidemia, rheumatoid arthritis, fibromyalgia, prediabetes. Last confinement December 2018 for left face and left arm numbness. Brain MRI negative for CVA. Possible TIA versus complicated migraine as per patient. Last night, patient noted achy headache symptoms. This morning patient still had headache symptoms associated with right face, right arm and right leg weakness/numbness. No chest pain, no S OB. No unusual stress at home. Patient compliant with home meds. SBP noted to be 180s at home. Patient given aspirin by EMS. No change in symptoms as per patient. 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 Admission Exam Per Admitting Provider Physical Exam: GENERAL: Comfortable, pleasant, slightly anxious, obese, no respiratory distress SKIN: Normal color, cool HEENT: [place] palpebral conjunctivae, no ptosis, moist buccal mucosa NECK : Supple, short neck, no tenderness CHEST : CTA, no tenderness HEART : RRR, no obvious murmurs ABDOMEN: Some distention, nontender EXTREMITIES : No LE swelling/tenderness, no other conspicuous deformities noted NEUROLOGIC : Coherent, no facial asymmetry, MMTs 4/5 (R slightly less than the left), no pronator drift, no other gross focality Principal Diagnosis Recurrent TIA, hypertension, anxiety state, rheumatoid arthritis, hyperlipidemia Discharge Exam Constitutional well developed, well nourished, + ill appearing and + obese Eyes PERRL, conjunctivae normal, anicteric sclerae ENMT external ear and nose normal, oropharynx normal Neck trachea midline, no thyromegaly Respiratory no respiratory distress Auscultation: lungs clear to auscultation bilaterally Cardiovascular Rate/Rhythm: regular rate and regular rhythm Heart Sounds: no murmur Extremities: + edema (Trace edema bilaterally) Gastrointestinal (Abdomen) Inspection/Auscultation: normal bowel sounds; abdomen not distended Percussion/Palpation: abdomen soft; abdomen nontender Neurologic CN's II-XI intact bilaterally Lymphatic no cervical or axillary lymphadenopathy Discharge Data Allergies Allergy/AdvReac Type Severity Reaction Status Date / Time tetracycline Allergy Severe SWELLING Unverified 01/17/19 14:55 meperidine [From Demerol] Allergy Intermediate Rash Unverified 11/24/20 21:54 Penicillins Allergy Intermediate Rash Unverified 11/24/20 21:54 promethazine Allergy Intermediate Very Unverified 11/24/20 21:54 Anxious aspirin AdvReac Severe GI upset Verified 11/25/20 08:08 adalimumab AdvReac Intermediate Body Chills Unverified 11/24/20 21:59 etanercept AdvReac Intermediate Body Chills Unverified 11/24/20 21:59 pseudoephedrine AdvReac Intermediate Elevated Unverified 11/24/20 21:54 Blood Pressure Bbcheiy-Ika-Rnw Reductase AdvReac Intermediate Muscle Unverified 11/24/20 21:54 Inhibitor Aches - Even Pravastatin Consultations 11/24/20 21:52 ED Decision to Admit Stat 11/25/20 02:15 Consult Neurology Routine Ordered Studies 11/24/20 20:25 CT angio head w con Urgent CT angio neck with con Urgent CT head/brain wo con Urgent 11/25/20 02:15 MR brain wo con Routine Hospital Course (1) Right sided numbness: R sided numbness/weakness with headache symptoms History of TIA without any history of stroke and/or sequelae CVA versus complicated migraine CT of the head and neck unremarkable MRI of the brainno acute intracranial abnormality. No acute or subacute infarct Appreciate neurology input and recommendation We will get PT and OT evaluation before discharge-did very well with PT and OT Clinically much better with minimal weakness involving the right side extremities Has been waiting for echocardiogram before discharge this afternoon We will continue with Plavix and will have a Zio patch as an outpatient Neurology follow-up in 3 to 4 weeks Hypertension, elevated secondary to intracranial process Remains on the upper side of acceptable limit Anxiety contributory Blood pressure remains controlled Hyperlipidemia, on statin Rx Rheumatoid arthritis/fibromyalgia, stable as per patient Prediabetes, hemoglobin A1c of 5.29 July 2020. DVT prophylaxis per Lovenox subcu Full code Likely discharge this afternoon provided request complete Total Time Total Time Spent Total Time Spent (In Minutes): 35 minutes Total Time Includes: Examination of the Patient, Discharge Planning, Medication Reconciliation and Communication With Other Providers Discharge Plan Discharge Items Patient Disposition: Home - Home Health Services Reason For Visit: R SIDE WEAKNESS Discharge Diagnosis: Recurrent TIA, hypertension, anxiety state, rheumatoid arthritis, hyperlipidemia Condition on Discharge: Good Activity: Resume your previous activity Non-emergency contact: Primary Care Provider Call non-emergency contact if: you have any medication questions and your symptoms worsen Follow-up/Referrals: Radha Palmer, [Primary Care Provider] - (Date & Time 11/28/2020 11:20 AM Provider Ember Lopes MD Department [facility] ) Diet: Heart Healthy Addtl Attending Provider Instructions: Please take precaution to avoid falls. Continue your Plavix [facility] will make an appointment for follow-up as an outpatient Pending Studies at Discharge: No Stand-Alone Forms: [facility] Integrated Medical Management, Smoking Cessation Medications and DC Order Prescriptions: Continued bisoprolol-hydrochlorothiazide 10-6.25 mg tablet 1 tab PO DAILY RF: 0 levothyroxine [Synthroid] 125 mcg tablet 125 mcg PO DAILY RF: 0 lisinopril 10 mg tablet 10 mg PO DAILY RF: 0 montelukast 10 mg tablet 10 mg PO DAILY RF: 0 allopurinol 300 mg tablet 300 mg PO DAILY RF: 0 fluticasone propion-salmeterol [Wixela Inhub] 250-50 mcg/dose blister with device 1 inh inhalation BID RF: 0 hydroxyzine pamoate [Vistaril] 50 mg capsule 50 mg PO Q6H PRN (Reason: anxiety) Qty: 10 RF: 0 multivitamin Tablet 1 tab PO QAM RF: 0 clopidogrel 75 mg tablet 75 mg PO DAILY RF: 0 magnesium 250 mg Tablet 250 mg PO DAILY RF: 0 coenzyme Q10 [Co Q-10] 100 mg Capsule 100 mg PO DAILY RF: 0 calcium carbonate-vitamin D3 500 mg(1,250mg) -125 unit Tablet 1 tab PO DAILY RF: 0 Discharge Orders: Discharge Order (Routine); Ordered 11/26/20 Ordered By: Dallas Wu Admission Data Admit Date/Time: 11/24/20 23:37 Attending Provider: Dallas Wu Admit Provider: Cristofer Bautista Primary Care Provider: Radha Palmer Other Providers: Cristofer Bautista ; Julissa Ackerman ; Mohan Ga Kathleen ; Mando Conteh ; Janette Kumar Other Interventions: Discharge Summary Assessment (RN) Last Done: 11/26/20 16:55
== END 2020-11-26 17:14 | disposition home health service (06) ==
LOC: ED 20:05 → 2N 20:05 → SUATTDRO 23:37 → 2N 11-25 01:58